=== PATIENT | male | born 1940 | race Caucasian/White ===

== ENCOUNTER → 2016-12-07 | Outpatient (CLI) | payer MEDICARE ==
--- NOTE | 2016-12-07 15:24 | CT ---
EXAMINATION TYPE: CT chest wo con DATE OF EXAM: 12/07/2016 2:51 PM COMPARISON: CT chest October 01, 2008. HISTORY: Cough and shortness of breath per order. CT DLP: 487 mGycm. Automated Exposure Control for Dose Reduction was Utilized. TECHNIQUE: CT scan of the thorax is performed without IV contrast. FINDINGS: LUNGS: Mild apical scarring bilaterally is present. Linear scarring in the right lower lobe is redemo nstrated. There is additional scarring medially in the left lung base again seen. No new concerning p arenchymal nodule or mass is present bilaterally. No new consolidation or groundglass opacity is seen . No pleural effusion or pneumothorax is noted bilaterally. MEDIASTINUM: Lack of IV contrast is noted to limit evaluation for mediastinal and especially hilar ad enopathy. There are no definitive greater than 1 cm hilar or mediastinal lymph nodes. No cardiomega ly or pericardial effusion is seen. Prominent coronary artery calcification and/or coronary stents ar e redemonstrated. Ascending aorta measures 3.9 cm in diameter on axial image 34 slightly more promine nt than prior study. OTHER: There is 1 cm splenule anterior to the spleen. Mild to moderate multilevel spurring in the spi ne is present. Underlying S-shaped scoliotic curvature is slightly more prominent versus prior CT. IMPRESSION: No suspicious acute pulmonary process. No significant change from prior CT 2008. Some chr onic parenchymal changes bilaterally are redemonstrated.
== END | disposition home or self-care (01) ==
LOC: RADCTMAIN 13:55
PROVIDERS: ATTEND Internal Medicine Pulmonary Disease
DX: J98.4 Other disorders of lung (principal); R06.02 Shortness of breath; R05 Cough
CPT/HCPCS: 71250

== ENCOUNTER 2018-10-17 14:33 | Inpatient (IN) | payer MEDICARE ==
[2018-10-17] MEDS ORDERED: SODIUM CHLORIDE 0.9% 1,000 ML IV STA (15:41)
[2018-10-17] MEDS ORDERED: DIPHENOX-ATROP 2.5-0.025 MG 1 EACH TAB PO STA (15:41)
[2018-10-17 15:54] LABS: Basophils % (A) 0 %; Eosinophils # (A) 0.2 k/uL (0-0.7); Eosinophils % (A) 2 %; HGB 13.8 gm/dL (13.0-17.5); Lymphocytes % (A) 9 %; MCH 35.3 pg (25.0-35.0); MCHC 34.5 g/dL (31.0-37.0); MCV 102.2 fL (80.0-100.0); Macrocytosis Slight; Mean Platelet Volume 6.8; Monocytes # (A) 0.6 k/uL (0-1.0); Monocytes % (A) 6 %; Neutrophils # (A) 9.1 k/uL (1.3-7.7); Neutrophils % (A) 82 %; Platelet Count 245 k/uL (150-450); RBC 3.91 m/uL (4.30-5.90); RDW 13.8 % (11.5-15.5); WBC 11.1 k/uL (3.8-10.6)
[2018-10-17 16:04] LABS: ALT 33 U/L (21-72); AST 48 U/L (17-59); Albumin 3.1 g/dL (3.5-5.0); Alcohol <10 mg/dL; Alkaline Phosphatase 139 U/L (38-126); Anion Gap 12 mmol/L; Blood Urea Nitrogen 17 mg/dL (9-20); Calcium 7.3 mg/dL (8.4-10.2); Carbon Dioxide 36 mmol/L (22-30); Chloride 88 mmol/L (98-107); Glucose 122 mg/dL (74-99); Magnesium 1.1 mg/dL (1.6-2.3); Potassium 3.2 mmol/L (3.5-5.1); Sodium 136 mmol/L (137-145); Total Bilirubin 1.4 mg/dL (0.2-1.3); Total Protein 5.8 g/dL (6.3-8.2)
[2018-10-17 16:06] LABS: INR 0.9 (<1.2); Partial Thromboplastin Time 22.2 sec (22.0-30.0); Prothrombin Time 9.8 sec (9.0-12.0)
--- NOTE | 2018-10-17 16:09 | ED ---
General Adult HPI - General Source: patient, family, RN notes reviewed Mode of arrival: wheelchair Limitations: physical limitation <Indio Calderon - Last Filed: 10/17/18 16:56> <Karsten Steiner - Last Filed: 10/17/18 18:50> - General Chief complaint: Weakness Stated complaint: Diarrhea,weak-Dr sent Time Seen by Provider: 10/17/18 15:00 - History of Present Illness Initial comments: This is an 78-year-old male presents emergency Department with a past medical history significant for alcoholism. Patient presents today because she's had diarrhea for weeks. Patient states this worsened over the last couple days and today while he was in the doctor's office he was unable to make it to the bathroom and he was in constant. Family doctor wanted her to come to be evaluated in the hospital. Patient states she drinks every day but has not drink today. Patient has no complaint pain. Patient states he does have dizzy spells occasionally even when he sitting down on occasion. Patient denies any chest pain difficulty breathing shortest breath. Patient denies a headache patient denies numbness weakness. Patient denies any near syncopal episode. Patient denies abdominal pain patient denies any nausea vomiting. Patient denies any recent antibiotic use. Patient states he doesn't eat much at all. (Indio Calderon) - Related Data Home Medications Medication Instructions Recorded Confirmed Budesonide [Pulmicort] 0.5 mg INHALATION RT-BID 01/04/14 10/17/18 Furosemide [Lasix] 40 mg PO DAILY 01/04/14 10/17/18 Metoprolol Succinate [Toprol XL] 100 mg PO DAILY 01/04/14 10/17/18 Lisinopril [Zestril] 20 mg PO DAILY 09/25/15 10/17/18 amLODIPine [Norvasc] 5 mg PO DAILY 10/17/18 10/17/18 Allergies Allergy/AdvReac Type Severity Reaction Status Date / Time acetaminophen [From Tylenol] AdvReac CONFUSED, Verified 10/17/18 15:40 HYPER Review of Systems ROS Other: All systems not noted in ROS Statement are negative. <Idnio Calderon - Last Filed: 10/17/18 16:56> ROS Other: All systems not noted in ROS Statement are negative. <Karsten Steiner - Last Filed: 10/17/18 18:50> ROS Statement: Those systems with pertinent positive or pertinent negative responses have been documented in the HPI. Past Medical History Past Medical History: Asthma, Chest Pain / Angina, COPD, Diabetes Mellitus, Eye Disorder, Hearing Disorder / Deafness, Hyperlipidemia, Hypertension, Myocardial Infarction (non Q-wave), Pneumonia, Skin Disorder, Syncope Additional Past Medical History / Comment(s): ISCHEMIC CMP. HAS ABD HERNIA, WEARS BINDER. CURRENT LESION LT [place] AREA. LT LOWER LEG REDNESS. 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 Last Myocardial Infarction Date:: 01/10/14 History of Any Multi-Drug Resistant Organisms: None Reported Past Surgical History: Appendectomy, Back Surgery, Bowel Resection, Hernia Repair, Orthopedic Surgery Additional Past Surgical History / Comment(s): BACK SURG D/T INFECTION CHILD. RT SHOULDER. Past Anesthesia/Blood Transfusion Reactions: No Reported Reaction Past Psychological History: No Psychological Hx Reported Smoking Status: Former smoker Past Alcohol Use History: Daily Past Drug Use History: None Reported - Past Family History Brother(s) Family Medical History: Cancer <Indio Calderon - Last Filed: 10/17/18 16:56> General Exam Limitations: physical limitation <Indio Calderon - Last Filed: 10/17/18 16:56> <Karsten Steiner - Last Filed: 10/17/18 18:50> - General Exam Comments Initial Comments: GENERAL: Patient is well-developed and well-nourished. Patient is nontoxic and well- hydrated and is in mild distress. ENT: Neck is soft and supple. No significant lymphadenopathy is noted. Oropharynx is clear. Mucous membranes. Neck has full range of motion without eliciting any pain. EYES: The sclera were anicteric and conjunctiva were pink and moist. Extraocular movements were intact and pupils were equal round and reactive to light. Eyelids were unremarkable. PULMONARY: Unlabored respirations. Good breath sounds bilaterally. No audible rales rhonc hi or wheezing was noted. CARDIOVASCULAR: There is a regular rate and rhythm without any murmurs gallops or rubs. ABDOMEN: Soft and nontender with normal bowel sounds. No palpable organomegaly was noted. There is no palpable pulsatile mass. SKIN: Skin is clear with no lesions or rashes and otherwise unremarkable. NEUROLOGIC: Patient is alert and oriented x3. Cranial nerves II through XII are grossly intact. Motor and sensory are also intact. Normal speech, volume and content. Symmetrical smile. MUSCULOSKELETAL: Normal extremities with adequate strength and full range of motion. No lower extremity swelling or edema. No calf tenderness. LYMPHATICS: No significant lymphadenopathy is noted PSYCHIATRIC: Normal psychiatric evaluation. (Indio Calderon) Vital Signs 10/17/18 15:14 Temperature 98.3 F Pulse Rate 59 L Respiratory 18 Rate Blood Pressure 119/71 O2 Sat by Pulse 98 Oximetry Procedures - Sepsis Sepsis Focused Exam #1 Sepsis Focused Exam Date: 10/17/18 Sepsis Focused Exam Time: 18:50 Sepsis Focused Exam Complete: Yes Vital Signs & RN Notes Reviewed: Yes Capillary Refill: < 2 Seconds: Fingers, Toes Peripheral Pulses: Normal: Radial (R), Radial (L) Skin Color: Normal for Patient Respiratory Exam: normal lung sounds Cardiovascular Exam: regular rate <Karsten Steiner - Last Filed: 10/17/18 18:50> Medical Decision Making - Lab Data Result diagrams: 10/17/18 15:41 10/17/18 15:41 <Indio Calderon - Last Filed: 10/17/18 16:56> - Lab Data Result diagrams: 10/17/18 15:41 10/17/18 15:41 <Karsten Steiner - Last Filed: 10/17/18 18:50> - Medical Decision Making EKG shows sinus rhythm with occasional PAC at 65 bpm OK interval 158 QRS is 94 QT interval 462 QTC is 480. Patient's EKG shows inverted T waves in V3 through V6 which was seen before. CT of the brain shows no acute abnormality. Patient has urinary tract infection started the patient on Rocephin. Patient's lactic acid 5.4 so the patient to 2.5 L of fluid. I spoke with Dr. Rian torrez that the patient. I admitted the patient wrote admitting orders. Patient also got magnesium to replace magnesium and some potassium as well as. (Indio Calderon) - Lab Data Lab Results 10/17/18 10/17/18 10/17/18 Range/Units 15:41 15:41 15:41 WBC 11.1 H (3.8-10.6) k/uL RBC 3.91 L (4.30-5.90) m/uL Hgb 13.8 (13.0-17.5) gm/dL Hct 40.0 (39.0-53.0) % MCV 102.2 H (80.0-100.0) fL MCH 35.3 H (25.0-35.0) pg MCHC 34.5 (31.0-37.0) g/dL RDW 13.8 (11.5-15.5) % Plt Count 245 (150-450) k/uL Neutrophils % 82 % Lymphocytes % 9 % Monocytes % 6 % Eosinophils % 2 % Basophils % 0 % Neutrophils # 9.1 H (1.3-7.7) k/uL Lymphocytes # 1.0 (1.0-4.8) k/uL Monocytes # 0.6 (0-1.0) k/uL Eosinophils # 0.2 (0-0.7) k/uL Basophils # 0.0 (0-0.2) k/uL Macrocytosis Slight PT (9.0-12.0) sec INR (<1.2) APTT (22.0-30.0) sec Sodium 136 L (137-145) mmol/L Potassium 3.2 L (3.5-5.1) mmol/L Chloride 88 L (98-107) mmol/L Carbon Dioxide 36 H (22-30) mmol/L Anion Gap 12 mmol/L BUN 17 (9-20) mg/dL Creatinine 1.54 H (0.66-1.25) mg/dL Est GFR (CKD-EPI)AfAm 49 (>60 ml/min/1.73 sqM) Est GFR (CKD-EPI)NonAf 42 (>60 ml/min/1.73 sqM) Glucose 122 H (74-99) mg/dL Plasma Lactic Acid Enmanuel 5.4 H* (0.7-2.0) mmol/L Calcium 7.3 L (8.4-10.2) mg/dL Magnesium 1.1 L (1.6-2.3) mg/dL Total Bilirubin 1.4 H (0.2-1.3) mg/dL AST 48 (17-59) U/L ALT 33 (21-72) U/L Alkaline Phosphatase 139 H (38-126) U/L Troponin I (0.000-0.034) ng/mL Total Protein 5.8 L (6.3-8.2) g/dL Albumin 3.1 L (3.5-5.0) g/dL Urine Color Urine Appearance (Clear) Urine pH (5.0-8.0) Ur Specific [place] (1.001-1.035) Urine Protein (Negative) Urine Glucose (UA) (Negative) Urine Ketones (Negative) Urine Blood (Negative) Urine Nitrite (Negative) Urine Bilirubin (Negative) Urine Urobilinogen (<2.0) mg/dL Ur Leukocyte Esterase (Negative) Urine RBC (0-5) /hpf Urine WBC (0-5) /hpf Urine WBC Clumps (None) /hpf Amorphous Sediment (None) /hpf Hyaline Casts (0-2) /lpf Urine Mucus (None) /hpf Serum Alcohol <10 mg/dL 10/17/18 10/17/18 10/17/18 Range/Units 15:41 15:41 16:32 WBC (3.8-10.6) k/uL RBC (4.30-5.90) m/uL Hgb (13.0-17.5) gm/dL Hct (39.0-53.0) % MCV (80.0-100.0) fL MCH (25.0-35.0) pg MCHC (31.0-37.0) g/dL RDW (11.5-15.5) % Plt Count (150-450) k/uL Neutrophils % % Lymphocytes % % Monocytes % % Eosinophils % % Basophils % % Neutrophils # (1.3-7.7) k/uL Lymphocytes # (1.0-4.8) k/uL Monocytes # (0-1.0) k/uL Eosinophils # (0-0.7) k/uL Basophils # (0-0.2) k/uL Macrocytosis PT 9.8 (9.0-12.0) sec INR 0.9 (<1.2) APTT 22.2 (22.0-30.0) sec Sodium (137-145) mmol/L Potassium (3.5-5.1) mmol/L Chloride (98-107) mmol/L Carbon Dioxide (22-30) mmol/L Anion Gap mmol/L BUN (9-20) mg/dL Creatinine (0.66-1.25) mg/dL Est GFR (CKD-EPI)AfAm (>60 ml/min/1.73 sqM) Est GFR (CKD-EPI)NonAf (>60 ml/min/1.73 sqM) Glucose (74-99) mg/dL Plasma Lactic Acid Enmanuel (0.7-2.0) mmol/L Calcium (8.4-10.2) mg/dL Magnesium (1.6-2.3) mg/dL Total Bilirubin (0.2-1.3) mg/dL AST (17-59) U/L ALT (21-72) U/L Alkaline Phosphatase (38-126) U/L Troponin I 0.101 H* (0.000-0.034) ng/mL Total Protein (6.3-8.2) g/dL Albumin (3.5-5.0) g/dL Urine Color Dark Yellow Urine Appearance Cloudy (Clear) Urine pH 5.0 (5.0-8.0) Ur Specific [place] 1.017 (1.001-1.035) Urine Protein 1+ H (Negative) Urine Glucose (UA) Negative (Negative) Urine Ketones Negative (Negative) Urine Blood Trace H (Negative) Urine Nitrite Negative (Negative) Urine Bilirubin 1+ H (Negative) Urine Urobilinogen 4.0 (<2.0) mg/dL Ur Leukocyte Esterase Trace H (Negative) Urine RBC 4 (0-5) /hpf Urine WBC 14 H (0-5) /hpf Urine WBC Clumps Many H (None) /hpf Amorphous Sediment Rare H (None) /hpf Hyaline Casts 87 H (0-2) /lpf Urine Mucus Occasional H (None) /hpf Serum Alcohol mg/dL Critical Care Time Critical Care Time: Yes Total Critical Care Time: 35 <Indio Calderon - Last Filed: 10/17/18 16:56> Disposition Time of Disposition: 16:53 <Indio Calderon - Last Filed: 10/17/18 16:56> <Karsten Steiner - Last Filed: 10/17/18 18:50> Clinical Impression: Lactic acidosis, Hypomagnesemia, Hypokalemia, Elevated troponin, Urinary tract infection, Renal insufficiency, Diarrhea, Sepsis Disposition: ADMITTED IP TO THIS HOSP
[2018-10-17] MEDS ORDERED: MAGNESIUM SULFATE-D5W PMX 1 GM in DEXTROSE/WATER 1 100ML.BAG IVPB ONE (16:13)
[2018-10-17] MEDS ORDERED: POTASSIUM CHLORIDE 20 MEQ in WATER FOR INJECTION 1 100ML.BAG IVPB STA (16:13)
[2018-10-17] MEDS ORDERED: POTASSIUM CHLORIDE ER 20 MEQ TAB.ER PO STA (16:13)
[2018-10-17] MEDS ORDERED: SODIUM CHLORIDE 0.9% 500 ML 500 ML IV ONE (16:14)
[2018-10-17] MEDS ORDERED: SODIUM CHLORIDE 0.9% 1,000 ML IV ONE ×2 (16:14→16:53)
--- NOTE | 2018-10-17 16:15 | CT ---
EXAMINATION TYPE: CT brain wo con DATE OF EXAM: 10/17/2018 HISTORY: weakness CT DLP: 1099.4 mGycm. Automated Exposure Control for Dose Reduction was Utilized. TECHNIQUE: CT scan of the head is performed without contrast. COMPARISON: CT brain February 03, 2016. FINDINGS: There is no acute intracranial hemorrhage or midline shift identified. There is diffuse v entricular and sulcal prominence consistent with diffuse age-related cerebral atrophy. There is low- attenuation in the periventricular white matter consistent with chronic small vessel ischemic change. There is vascular calcification distal internal carotid arteries bilaterally. There is new near comp lete opacification of smaller right sphenoid sinus. Remainder paranasal sinuses are clear. Globes a re intact bilaterally. Nasal septum is deviated to right of midline. IMPRESSION: No acute intracranial hemorrhage or midline shift. There is mild to moderate diffuse ag e-related cerebral atrophy and moderate to advanced chronic small vessel ischemic change redemonstrat ed. New patchy right sphenoid sinus disease noted.
[2018-10-17 16:41] LABS: Amorphous Sediment,Urine Rare /hpf; Appearance,Urine Cloudy (Clear); Bilirubin,Urine 1+ (Negative); Blood,Urine Trace (Negative); Color,Urine Dark Yellow; Glucose,Urine (UA) Negative (Negative); Hyaline Casts,Urine 87 /lpf (0-2); Ketones,Urine Negative (Negative); Leukocyte Esterase,Urine Trace (Negative); Mucus,Urine Occasional /hpf; Nitrite,Urine Negative (Negative); Protein,Urine 1+ (Negative); RBC,Urine 4 /hpf (0-5); Specific Gravity,Urine 1.017 (1.001-1.035); WBC,Urine 14 /hpf (0-5)
[2018-10-17] MEDS ORDERED: cefTRIAXone IN SWFI 1,000 MG/10 ML SYRINGE IVP STA (16:51)
--- NOTE | 2018-10-17 17:03 | XR ---
EXAMINATION: XR chest - 4V DATE AND TIME: 10/17/2018 4:55 PM CLINICAL INDICATION: PHH; Difficulty breathing TECHNIQUE: 2 frontal views and 2 lateral views COMPARISON: 01/10/2014 FINDINGS: The lungs are clear. The pleural spaces are negative. The cardiac silhouette is not enlarged. The skeletal structures and soft tissues are negative for acute findings. IMPRESSION: NO ACUTE PROCESS.
[2018-10-18 06:16] VITALS: BMI 22.5
[2018-10-18] MEDS ORDERED: amLODIPine 5 MG TAB PO SCH (09:00)
--- NOTE | 2018-10-18 09:16 | P.CRDCN ---
History of Present Illness Consult date: 10/18/18 Requesting physician: Mu Correa Reason for Consult (text): Abnormal troponin Chief complaint: Diarrhea History of present illness: This is an 78-year-old gentleman with history of prior non-Q-wave AR in 2013, severe COPD, EtOH abuse, hypertension, hyperlipidemia, prior history of smoking, who presents to the hospital with frequent diarrhea stools. Cardiology consultation was requested because of an abnormal troponin. CAT scan of the brain was performed on arrival here which did not reveal any acute intracranial hemorrhage or midline shift. Moderate diffuse age-related cerebral atrophy and moderate advanced chronic small vessel ischemic change. Chest x-ray did not reveal any acute process. EKG on arrival here showed a normal sinus rhythm with PACs, PVCs and nonspecific ST-T wave changes which could be secondary to electrolyte imbalance. Laboratory data was reviewed, white blood cell count 11.1, hemoglobin 13.8, platelet count 245. Sodium 136, potassium 3.2, BUN 17 and creatinine 1.5. Plasma lactic acid on admission 5.4, 2.2 this morning. Calcium 7.3 magnesium 1.1 total bilirubin 1.4 alkaline phosphatase 139, troponin 0.101, total protein 5.8, albumin 3.1. At the time of my examination this morning, patient states he feels great, he is quite eager to be discharged home. He has had no further episodes of diarrhea this morning according to him. He denies having any chest discomfort and states his breathing is always short from his COPD. the patient does live alone and states that he prepares his own meals. The patient did have an admission to the hospital in 2013 with a suspected non-Q-wave myocardial infarction. His lung doctor, Dr. OBED Hernandez, advised at that time not to proceed with any procedures clinical coder a life-threatening, because of the severe COPD. He had an echo performed at that time which revealed an EF of 30-35%. Past Medical History Past Medical History: Asthma, Chest Pain / Angina, COPD, Diabetes Mellitus, Eye Disorder, Hearing Disorder / Deafness, Hyperlipidemia, Hypertension, Myocardial Infarction (non Q-wave), Pneumonia, Skin Disorder, Syncope Additional Past Medical History / Comment(s): ISCHEMIC CMP. HAS ABD HERNIA, WEARS BINDER. CURRENT LESION LT [place] AREA. LT LOWER LEG REDNESS. 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 Last Myocardial Infarction Date:: 01/10/14 History of Any Multi-Drug Resistant Organisms: None Reported Past Surgical History: Appendectomy, Back Surgery, Bowel Resection, Hernia Repair, Orthopedic Surgery Additional Past Surgical History / Comment(s): BACK SURG D/T INFECTION CHILD. RT SHOULDER. Past Anesthesia/Blood Transfusion Reactions: No Reported Reaction Past Psychological History: No Psychological Hx Reported Smoking Status: Former smoker Past Alcohol Use History: Daily Additional Past Alcohol Use History / Comment(s): SMOKED 49 YEARS, 1 PPD PLUS, QUIT 1988 Past Drug Use History: None Reported Additional Drug Use History / Comment(s): NONE NOW - Past Family History Brother(s) Family Medical History: Cancer Medications and Allergies Home Medications Medication Instructions Recorded Confirmed Type Budesonide [Pulmicort] 0.5 mg INHALATION RT-BID 01/04/14 10/17/18 History Furosemide [Lasix] 40 mg PO DAILY 01/04/14 10/17/18 History Metoprolol Succinate [Toprol XL] 100 mg PO DAILY 01/04/14 10/17/18 History Lisinopril [Zestril] 20 mg PO DAILY 09/25/15 10/17/18 History amLODIPine [Norvasc] 5 mg PO DAILY 10/17/18 10/17/18 History Allergies Allergy/AdvReac Type Severity Reaction Status Date / Time acetaminophen [From Tylenol] AdvReac CONFUSED, Verified 10/17/18 15:40 HYPER Physical Exam Vitals: Vital Signs Temp Pulse Pulse Resp BP BP Pulse Ox 10/18/18 04:31 67 20 149/72 98 10/17/18 20:53 98.5 F 10/17/18 19:30 61 17 127/72 10/17/18 18:00 68 16 136/74 10/17/18 17:30 66 23 130/96 10/17/18 17:00 66 23 119/71 98 10/17/18 15:14 98.3 F 59 L 18 119/71 98 Intake and Output 10/17/18 10/18/18 10/18/18 22:59 06:59 14:59 Intake Total 118 Output Total 150 300 Balance -150 -182 Intake: Oral 118 Output: Urine 150 300 Other: Voiding Method Toilet # Voids 1 1 Weight 75.387 kg 73.3 kg PHYSICAL EXAMINATION: GENERAL: 78-year-old gentleman in no acute distress at the time of my examination HEENT: Head is atraumatic, normocephalic. Pupils equal, round. Sclera anicteric. Conjunctiva are clear. Mucous membranes of the mouth are moist. Neck is supple. There is no elevated jugular venous pressure. No carotid bruit is heard. HEART EXAMINATION: Heart S1 and S2 with soft systolic murmur is heard CHEST EXAMINATION: Lungs reveal mild decrease in air exchange. ABDOMEN: Soft, nontender. Bowel sounds are heard. No organomegaly noted. EXTREMITIES:[ 2+ peripheral pulses with no evidence chronic venous stasis and scaling of the skin, trace edema NEUROLOGIC patient is awake, alert and oriented 3 . . Results 10/17/18 15:41 10/17/18 15:41 Cardiac Enzymes 10/17/18 10/17/18 Range/Units 15:41 15:41 AST 48 (17-59) U/L Troponin I 0.101 H* (0.000-0.034) ng/mL Coagulation 10/17/18 Range/Units 15:41 PT 9.8 (9.0-12.0) sec APTT 22.2 (22.0-30.0) sec CBC 10/17/18 Range/Units 15:41 WBC 11.1 H (3.8-10.6) k/uL RBC 3.91 L (4.30-5.90) m/uL Hgb 13.8 (13.0-17.5) gm/dL Hct 40.0 (39.0-53.0) % Plt Count 245 (150-450) k/uL Comprehensive Metabolic Panel 10/17/18 Range/Units 15:41 Sodium 136 L (137-145) mmol/L Potassium 3.2 L (3.5-5.1) mmol/L Chloride 88 L (98-107) mmol/L Carbon Dioxide 36 H (22-30) mmol/L BUN 17 (9-20) mg/dL Creatinine 1.54 H (0.66-1.25) mg/dL Glucose 122 H (74-99) mg/dL Calcium 7.3 L (8.4-10.2) mg/dL AST 48 (17-59) U/L ALT 33 (21-72) U/L Alkaline Phosphatase 139 H (38-126) U/L Total Protein 5.8 L (6.3-8.2) g/dL Albumin 3.1 L (3.5-5.0) g/dL Current Medications Generic Name Dose Route Start Last Admin Trade Name Simin PRN Reason Stop Dose Admin Ceftriaxone Sodium 1 gm/ 50 mls @ 100 mls/hr 10/18/18 09:00 Sodium Chloride IVPB Q24HR MARCI Intake and Output 10/17/18 10/18/18 10/18/18 22:59 06:59 14:59 Intake Total 118 Output Total 150 300 Balance -150 -182 Intake: Oral 118 Output: Urine 150 300 Other: Voiding Method Toilet # Voids 1 1 Weight 75.387 kg 73.3 kg 10/17/18 15:41 10/17/18 15:41 EKG Interpretations (text) EKG shows a normal sinus rhythm with PACs, PVCs, and ST-T wave changes likely secondary to electrolyte imbalance Assessment and Plan Plan: Assessment and plan #1 several diarrhea stools #2 abnormal troponin, 0.101. Patient denies having any chest discomfort, could be secondary to abnormal renal function #3 hypokalemia #4 hypomagnesemia #5 hypocalcemia #6 EtOH abuse #7 history of non-STEMI in 2013 echo performed at that time showed an EF of 30- 35, patient advised at that time not to undergo any procedures secondary to severe COPD #8 moderate to severe COPD #9 history of smoking Plan We will obtain 2 subsequent troponins. Repeat echocardiogram with Doppler study. Replace potassium and magnesium. Because of the known abnormal LV function we will discontinue the Norvasc, continue beta harman and DENIS inhibitor. Repeat labs in the morning. Patient also is receiving hydration. We will put the patient on a baby aspirin, small dose of statin. Further recommendations to follow. DNP note has been reviewed, I agree with a documented findings and plan of care. Patient was seen and examined.
[2018-10-18] MEDS: LISINOPRIL 20 MG TAB PO SCH (09:31)
[2018-10-18] MEDS: METOPROLOL SUCCINATE (ER) 100 MG TAB.ER.24H PO SCH (09:31)
[2018-10-18] MEDS: ASPIRIN 81 MG PO SCH (09:32)
--- NOTE | 2018-10-18 10:57 | P.HPIM ---
History of Present Illness 78-year-old male presented to family physician with severe diarrhea. Was sent to the emergency room for evaluation was found to be septic urinary tract infection. Has elevated troponin. Patient does have history of congestive hea rt failure ejection fraction 30-35%. Severe COPD. Alcohol abuse. Has history of several bowel resections does have a hernia ventral. History of coronary disease with IA Review of Systems Respiratory: Reports dyspnea Gastrointestinal: Reports diarrhea Past Medical History Past Medical History: Asthma, Chest Pain / Angina, COPD, Diabetes Mellitus, Eye Disorder, Hearing Disorder / Deafness, Hyperlipidemia, Hypertension, Myocardial Infarction (non Q-wave), Pneumonia, Skin Disorder, Syncope Additional Past Medical History / Comment(s): ISCHEMIC CMP. HAS ABD HERNIA, WEARS BINDER. CURRENT LESION LT [place] AREA. LT LOWER LEG REDNESS. 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 Last Myocardial Infarction Date:: 01/10/14 History of Any Multi-Drug Resistant Organisms: None Reported Past Surgical History: Appendectomy, Back Surgery, Bowel Resection, Hernia Repair, Orthopedic Surgery Additional Past Surgical History / Comment(s): BACK SURG D/T INFECTION CHILD. RT SHOULDER. Past Anesthesia/Blood Transfusion Reactions: No Reported Reaction Past Psychological History: No Psychological Hx Reported Smoking Status: Former smoker Past Alcohol Use History: Daily Additional Past Alcohol Use History / Comment(s): SMOKED 51 YEARS, 1 PPD PLUS, QUIT 1988 Past Drug Use History: None Reported Additional Drug Use History / Comment(s): NONE NOW - Past Family History Brother(s) Family Medical History: Cancer Medications and Allergies Home Medications Medication Instructions Recorded Confirmed Type Budesonide [Pulmicort] 0.5 mg INHALATION RT-BID 01/04/14 10/17/18 History Furosemide [Lasix] 40 mg PO DAILY 01/04/14 10/17/18 History Metoprolol Succinate [Toprol XL] 100 mg PO DAILY 01/04/14 10/17/18 History Lisinopril [Zestril] 20 mg PO DAILY 09/25/15 10/17/18 History amLODIPine [Norvasc] 5 mg PO DAILY 10/17/18 10/17/18 History Allergies Allergy/AdvReac Type Severity Reaction Status Date / Time acetaminophen [From Tylenol] AdvReac CONFUSED, Verified 10/17/18 15:40 HYPER Physical Exam Vitals: Vital Signs Temp Pulse Pulse Resp BP BP Pulse Ox 10/18/18 08:00 98.2 F 68 16 123/62 92 L 10/18/18 04:31 67 20 149/72 98 10/17/18 20:53 98.5 F 10/17/18 19:30 61 17 127/72 10/17/18 18:00 68 16 136/74 10/17/18 17:30 66 23 130/96 10/17/18 17:00 66 23 119/71 98 10/17/18 15:14 98.3 F 59 L 18 119/71 98 Intake and Output 10/17/18 10/18/18 10/18/18 22:59 06:59 14:59 Intake Total 118 Output Total 150 300 Balance -150 -182 Intake: Oral 118 Output: Urine 150 300 Other: Voiding Method Toilet # Voids 1 1 Weight 75.387 kg 73.3 kg 73.3 kg - Constitutional General appearance: mild distress - EENT Eyes: PERRLA ENT: hard of hearing Ears: bilateral: normal - Neck Neck: normal ROM - Respiratory Respiratory: bilateral: CTA - Cardiovascular Rhythm: regular - Gastrointestinal General gastrointestinal: soft - Integumentary Integumentary: normal - Neurologic Neurologic: CNII-XII intact - Musculoskeletal Musculoskeletal: generalized weakness - Psychiatric Psychiatric: A&O x's 3, appropriate affect, intact judgment & insight Results CBC & Chem 7: 10/17/18 15:41 10/17/18 15:41 Labs: Abnormal Lab Results - Last 24 Hours (Table) 10/17/18 10/17/18 10/17/18 Range/Units 15:41 15:41 15:41 WBC 11.1 H (3.8-10.6) k/uL RBC 3.91 L (4.30-5.90) m/uL MCV 102.2 H (80.0-100.0) fL MCH 35.3 H (25.0-35.0) pg Neutrophils # 9.1 H (1.3-7.7) k/uL Sodium 136 L (137-145) mmol/L Potassium 3.2 L (3.5-5.1) mmol/L Chloride 88 L (98-107) mmol/L Carbon Dioxide 36 H (22-30) mmol/L Creatinine 1.54 H (0.66-1.25) mg/dL Glucose 122 H (74-99) mg/dL Plasma Lactic Acid Enmanuel 5.4 H* (0.7-2.0) mmol/L Calcium 7.3 L (8.4-10.2) mg/dL Magnesium 1.1 L (1.6-2.3) mg/dL Total Bilirubin 1.4 H (0.2-1.3) mg/dL Alkaline Phosphatase 139 H (38-126) U/L Troponin I (0.000-0.034) ng/mL Total Protein 5.8 L (6.3-8.2) g/dL Albumin 3.1 L (3.5-5.0) g/dL Urine Protein (Negative) Urine Blood (Negative) Urine Bilirubin (Negative) Ur Leukocyte Esterase (Negative) Urine WBC (0-5) /hpf Urine WBC Clumps (None) /hpf Amorphous Sediment (None) /hpf Hyaline Casts (0-2) /lpf Urine Mucus (None) /hpf 10/17/18 10/17/18 10/17/18 Range/Units 15:41 16:32 19:09 WBC (3.8-10.6) k/uL RBC (4.30-5.90) m/uL MCV (80.0-100.0) fL MCH (25.0-35.0) pg Neutrophils # (1.3-7.7) k/uL Sodium (137-145) mmol/L Potassium (3.5-5.1) mmol/L Chloride (98-107) mmol/L Carbon Dioxide (22-30) mmol/L Creatinine (0.66-1.25) mg/dL Glucose (74-99) mg/dL Plasma Lactic Acid Enmanuel 2.2 H* (0.7-2.0) mmol/L Calcium (8.4-10.2) mg/dL Magnesium (1.6-2.3) mg/dL Total Bilirubin (0.2-1.3) mg/dL Alkaline Phosphatase (38-126) U/L Troponin I 0.101 H* (0.000-0.034) ng/mL Total Protein (6.3-8.2) g/dL Albumin (3.5-5.0) g/dL Urine Protein 1+ H (Negative) Urine Blood Trace H (Negative) Urine Bilirubin 1+ H (Negative) Ur Leukocyte Esterase Trace H (Negative) Urine WBC 14 H (0-5) /hpf Urine WBC Clumps Many H (None) /hpf Amorphous Sediment Rare H (None) /hpf Hyaline Casts 87 H (0-2) /lpf Urine Mucus Occasional H (None) /hpf 10/18/18 Range/Units 09:00 WBC (3.8-10.6) k/uL RBC (4.30-5.90) m/uL MCV (80.0-100.0) fL MCH (25.0-35.0) pg Neutrophils # (1.3-7.7) k/uL Sodium (137-145) mmol/L Potassium (3.5-5.1) mmol/L Chloride (98-107) mmol/L Carbon Dioxide (22-30) mmol/L Creatinine (0.66-1.25) mg/dL Glucose (74-99) mg/dL Plasma Lactic Acid Enmanuel (0.7-2.0) mmol/L Calcium (8.4-10.2) mg/dL Magnesium (1.6-2.3) mg/dL Total Bilirubin (0.2-1.3) mg/dL Alkaline Phosphatase (38-126) U/L Troponin I 0.093 H* (0.000-0.034) ng/mL Total Protein (6.3-8.2) g/dL Albumin (3.5-5.0) g/dL Urine Protein (Negative) Urine Blood (Negative) Urine Bilirubin (Negative) Ur Leukocyte Esterase (Negative) Urine WBC (0-5) /hpf Urine WBC Clumps (None) /hpf Amorphous Sediment (None) /hpf Hyaline Casts (0-2) /lpf Urine Mucus (None) /hpf Microbiology - Last 24 Hours (Table) 10/17/18 16:32 Urine Culture - Preliminary Urine,Catheterized Chest x-ray: report reviewed CT Scan - head: report reviewed Assessment and Plan Plan: Assessment Lactic acidosis Hypo-magnesium hypokalemia Elevated troponin Urinary tract infection with sepsis Renal insufficiency Diarrhea 3 days History of congestive heart failure ejection fraction 30-35% systolic dysfunction Severe COPD Alcohol abuse History of bowel resection ventral hernia noted Heart of hearing History of hypertension Hyperlipidemia Diabetes diet-controlled Plan Cardiology consultation regarding elevated troponin Patient on Rocephin for UTI Gastroenterology consult for diarrhea
--- NOTE | 2018-10-18 14:21 | P.CONS ---
History of Present Illness - Reason for Consult Consult date: 10/18/18 Diarrhea Requesting physician: Mu Correa - Chief Complaint Diarrhea - History of Present Illness 78-year-old gentleman with a past medical history of EtOH abuse, diabetes, hypertension, [place], bowel resection admitted with persistent nonbloody diarrhea for more than 2 weeks. Additional history was obtained from female friend at bedside. Hemoglobin 13.8. White count 11.1. BUN 17. Creatinine 1.5. Lactic acid 5.4 with hydration 2.2. Troponin 0.09-0.1. Magnesium 1.1. Potassium 3.2. Sodium 136. C. diff requested. Presently no active diarrhea. Patient states when he was having diarrhea was averaging 2-3 times a day. No recent travels. No changes in diet. Last colonoscopy possibly 10-15 years ago. Denies weight loss or abdominal pain. No recent antibiotics. Requesting discharge. Review of Systems Constitutional: Denies fever, chills, sweats, weight gain, or loss. HEENT: Negative for migraines, blurred vision or loss, earaches, drainage, tinnitus, oral mucosal lesions, dysphagia, or odynophagia. Cardiac: Negative for chest pain, arrhythmias, or palpitation. Respiratory: Negative for shortness of breath, hemoptysis, cough, or sputum production. Gastrointestinal: See HPI for pertinent findings. Genitourinary: Negative for hematuria, urgency, frequency, polyuria, dysuria, or penile discharge. Musculoskeletal: Negative for muscle aches, swelling, arthritis, and arthralgias. Neurologic: Negative for stroke or TIA. Endocrine: Negative for thyroid problems. Skin: Negative for rash or itching. Psychiatric: Negative history for depression and anxiety Past Medical History Past Medical History: Asthma, Chest Pain / Angina, COPD, Diabetes Mellitus, Eye Disorder, Hearing Disorder / Deafness, Hyperlipidemia, Hypertension, Myocardial Infarction (non Q-wave), Pneumonia, Skin Disorder, Syncope Additional Past Medical History / Comment(s): ISCHEMIC CMP. HAS ABD HERNIA, WEARS BINDER. CURRENT LESION LT [place] AREA. LT LOWER LEG REDNESS. 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 Last Myocardial Infarction Date:: 01/10/14 History of Any Multi-Drug Resistant Organisms: None Reported Past Surgical History: Appendectomy, Back Surgery, Bowel Resection, Hernia Repair, Orthopedic Surgery Additional Past Surgical History / Comment(s): BACK SURG D/T INFECTION CHILD. RT SHOULDER. Past Anesthesia/Blood Transfusion Reactions: No Reported Reaction Past Psychological History: No Psychological Hx Reported Smoking Status: Former smoker Past Alcohol Use History: Daily Additional Past Alcohol Use History / Comment(s): SMOKED 51 YEARS, 1 PPD PLUS, QUIT 1988 Past Drug Use History: None Reported Additional Drug Use History / Comment(s): NONE NOW - Past Family History Brother(s) Family Medical History: Cancer Medications and Allergies Home Medications Medication Instructions Recorded Confirmed Type Budesonide [Pulmicort] 0.5 mg INHALATION RT-BID 01/04/14 10/17/18 History Furosemide [Lasix] 40 mg PO DAILY 01/04/14 10/17/18 History Metoprolol Succinate [Toprol XL] 100 mg PO DAILY 01/04/14 10/17/18 History Lisinopril [Zestril] 20 mg PO DAILY 09/25/15 10/17/18 History amLODIPine [Norvasc] 5 mg PO DAILY 10/17/18 10/17/18 History Allergies Allergy/AdvReac Type Severity Reaction Status Date / Time acetaminophen [From Tylenol] AdvReac CONFUSED, Verified 10/17/18 15:40 HYPER Physical Exam Vitals: Vital Signs Temp Pulse Pulse Resp BP BP Pulse Ox 10/18/18 12:00 98.7 F 71 16 142/77 97 10/18/18 08:00 98.2 F 68 16 123/62 92 L 10/18/18 04:31 67 20 149/72 98 10/17/18 20:53 98.5 F 10/17/18 19:30 61 17 127/72 10/17/18 18:00 68 16 136/74 10/17/18 17:30 66 23 130/96 10/17/18 17:00 66 23 119/71 98 10/17/18 15:14 98.3 F 59 L 18 119/71 98 Intake and Output 10/17/18 10/18/18 10/18/18 22:59 06:59 14:59 Intake Total 118 Output Total 150 300 Balance -150 -182 Intake: Oral 118 Output: Urine 150 300 Other: Voiding Method Toilet # Voids 1 1 Weight 75.387 kg 73.3 kg 73.3 kg General appearance: The patient is alert, oriented, in no acute distress. HET: Head is normocephalic and atraumatic. Pupils are equal and reactive. Oropharynx is clear without lesions. Neck: Supple without lymphadenopathy. Trachea midline. Heart: S1 S2. Regular rate and rhythm. Lungs: No crackles or wheezes are heard. Abdomen: Soft, nontender, nondistended with bowel sounds. No peritoneal signs. No palpable organomegaly or masses. Extremities: Normal skin color and turgor. No cyanosis, rash, ulceration, clubbing, or edema. Radial and pedal pulses are 2/4 bilaterally. Neurological: No focal deficits. Strength and sensation are grossly intact. Results CBC & Chem 7: 10/17/18 15:41 10/17/18 15:41 Labs: Abnormal Lab Results - Last 24 Hours (Table) 10/17/18 10/17/18 10/17/18 Range/Units 15:41 15:41 15:41 WBC 11.1 H (3.8-10.6) k/uL RBC 3.91 L (4.30-5.90) m/uL MCV 102.2 H (80.0-100.0) fL MCH 35.3 H (25.0-35.0) pg Neutrophils # 9.1 H (1.3-7.7) k/uL Sodium 136 L (137-145) mmol/L Potassium 3.2 L (3.5-5.1) mmol/L Chloride 88 L (98-107) mmol/L Carbon Dioxide 36 H (22-30) mmol/L Creatinine 1.54 H (0.66-1.25) mg/dL Glucose 122 H (74-99) mg/dL Plasma Lactic Acid Enmanuel 5.4 H* (0.7-2.0) mmol/L Calcium 7.3 L (8.4-10.2) mg/dL Magnesium 1.1 L (1.6-2.3) mg/dL Total Bilirubin 1.4 H (0.2-1.3) mg/dL Alkaline Phosphatase 139 H (38-126) U/L Troponin I (0.000-0.034) ng/mL Total Protein 5.8 L (6.3-8.2) g/dL Albumin 3.1 L (3.5-5.0) g/dL Urine Protein (Negative) Urine Blood (Negative) Urine Bilirubin (Negative) Ur Leukocyte Esterase (Negative) Urine WBC (0-5) /hpf Urine WBC Clumps (None) /hpf Amorphous Sediment (None) /hpf Hyaline Casts (0-2) /lpf Urine Mucus (None) /hpf 10/17/18 10/17/18 10/17/18 Range/Units 15:41 16:32 19:09 WBC (3.8-10.6) k/uL RBC (4.30-5.90) m/uL MCV (80.0-100.0) fL MCH (25.0-35.0) pg Neutrophils # (1.3-7.7) k/uL Sodium (137-145) mmol/L Potassium (3.5-5.1) mmol/L Chloride (98-107) mmol/L Carbon Dioxide (22-30) mmol/L Creatinine (0.66-1.25) mg/dL Glucose (74-99) mg/dL Plasma Lactic Acid Enmanuel 2.2 H* (0.7-2.0) mmol/L Calcium (8.4-10.2) mg/dL Magnesium (1.6-2.3) mg/dL Total Bilirubin (0.2-1.3) mg/dL Alkaline Phosphatase (38-126) U/L Troponin I 0.101 H* (0.000-0.034) ng/mL Total Protein (6.3-8.2) g/dL Albumin (3.5-5.0) g/dL Urine Protein 1+ H (Negative) Urine Blood Trace H (Negative) Urine Bilirubin 1+ H (Negative) Ur Leukocyte Esterase Trace H (Negative) Urine WBC 14 H (0-5) /hpf Urine WBC Clumps Many H (None) /hpf Amorphous Sediment Rare H (None) /hpf Hyaline Casts 87 H (0-2) /lpf Urine Mucus Occasional H (None) /hpf 10/18/18 Range/Units 09:00 WBC (3.8-10.6) k/uL RBC (4.30-5.90) m/uL MCV (80.0-100.0) fL MCH (25.0-35.0) pg Neutrophils # (1.3-7.7) k/uL Sodium (137-145) mmol/L Potassium (3.5-5.1) mmol/L Chloride (98-107) mmol/L Carbon Dioxide (22-30) mmol/L Creatinine (0.66-1.25) mg/dL Glucose (74-99) mg/dL Plasma Lactic Acid Enmanuel (0.7-2.0) mmol/L Calcium (8.4-10.2) mg/dL Magnesium (1.6-2.3) mg/dL Total Bilirubin (0.2-1.3) mg/dL Alkaline Phosphatase (38-126) U/L Troponin I 0.093 H* (0.000-0.034) ng/mL Total Protein (6.3-8.2) g/dL Albumin (3.5-5.0) g/dL Urine Protein (Negative) Urine Blood (Negative) Urine Bilirubin (Negative) Ur Leukocyte Esterase (Negative) Urine WBC (0-5) /hpf Urine WBC Clumps (None) /hpf Amorphous Sediment (None) /hpf Hyaline Casts (0-2) /lpf Urine Mucus (None) /hpf Microbiology - Last 24 Hours (Table) 10/17/18 16:32 Urine Culture - Preliminary Urine,Catheterized Assessment and Plan (1) Diarrhea Narrative/Plan: 78-year-old gentleman admitted with electrolyte imbalances painless nonbloody diarrhea for at least 2 weeks duration. Possible self limiting infectious possible inflammatory presently without diarrhea. Current Visit: Yes Status: Acute Code(s): R19.7 - DIARRHEA, UNSPECIFIED SNOMED Code(s): 74837577 (2) Elevated troponin Current Visit: Yes Status: Acute Code(s): R74.8 - ABNORMAL LEVELS OF OTHER SERUM ENZYMES SNOMED Code(s): 487178731 Plan: 1. Colonoscopy was discussed however patient declined he is requesting discharge. Presently no active diarrhea. If patient has recurrent watery diarrhea recommend stool testing including culture and Clostridium difficile testing. Advised [id number] antidiarrheals as necessary Imodium 2 mg 4 times a day as needed. Diet as tolerated. Thank you for this kind referral and the opportunity to participate in the care of your patient. This consultation was discussed with Dr. Clark. The impression and plan of care have been directed as dictated.
--- NOTE | 2018-10-18 19:05 | ECHOF ---
Referral Reason:abn trop MEASUREMENTS -------- HEIGHT: 180.3 cm WEIGHT: 73.0 kg BP: 149/72 IVSd: 1.4 cm (0.6 - 1.1) LVIDd: 3.8 cm (3.9 - 5.3) LVPWd: 1.2 cm (0.6 - 1.1) IVSs: 1.8 cm LVIDs: 2.4 cm LVPWs: 1.7 cm Ao Diam: 3.3 cm (2.0 - 3.7) AV Cusp: 2.4 cm (1.5 - 2.6) LA Diam: 3.4 cm (2.7 - 3.8) MV EXCURSION: 14.924 mm (> 18.000) MV EF SLOPE: 64 mm/s (70 - 150) EPSS: 0.5 cm MV E Servando: 0.65 m/s MV DecT: 272 ms MV A Servando: 0.73 m/s MV E/A Ratio: 0.88 RAP: 5.00 mmHg RVSP: 35.21 mmHg FINDINGS -------- Sinus rhythm. This was a technically good study. The left ventricular size is normal. There is moderate concentric left ventricular hypertrophy. O verall left ventricular systolic function is normal with, an EF between 55 - 60 %. The right ventricle is normal in size. The left atrium is normal in size. The right atrial size is normal. Aortic valve is trileaflet and is mildly thickened. The mitral valve leaflets are mildly thickened. Mild mitral annular calcification present. There is trace mitral regurgitation. Mild tricuspid regurgitation present. There is borderline pulmonary hypertension. The right ventr icular systolic pressure, as measured by Doppler, is 35.21mmHg. There is no pulmonic regurgitation present. The aortic root size is normal. Normal inferior vena cava with normal inspiratory collapse consistent with estimated right atrial pre ssure of 5 mmHg. The pericardium is normal. CONCLUSIONS -------- 1. Sinus rhythm. 2. This was a technically good study. 3. The left ventricular size is normal. 4. There is moderate concentric left ventricular hypertrophy. 5. Overall left ventricular systolic function is normal with, an EF between 55 - 60 %. 6. The right ventricle is normal in size. 7. The left atrium is normal in size. 8. The right atrial size is normal. 9. Aortic valve is trileaflet and is mildly thickened. 10. The mitral valve leaflets are mildly thickened. 11. Mild mitral annular calcification present. 12. There is trace mitral regurgitation. 13. Mild tricuspid regurgitation present. 14. There is borderline pulmonary hypertension. 15. The right ventricular systolic pressure, as measured by Doppler, is 35.21mmHg. 16. There is no pulmonic regurgitation present. 17. The aortic root size is normal. 18. Normal inferior vena cava with normal inspiratory collapse consistent with estimated right atrial pressure of 5 mmHg. 19. The pericardium is normal. [facility]: Homa Kim RDCS
[2018-10-18] MEDS: BUDESONIDE 0.5 MG/2 ML NEBU INHALATION SCH (19:50)
[2018-10-18] MEDS: ATORVASTATIN 20 MG TAB PO SCH (20:59)
[2018-10-19] MEDS: BUDESONIDE 0.5 MG/2 ML NEBU INHALATION SCH ×2 (07:50→19:41)
[2018-10-19] MEDS: LISINOPRIL 20 MG TAB PO SCH (09:57)
[2018-10-19] MEDS: METOPROLOL SUCCINATE (ER) 100 MG TAB.ER.24H PO SCH (09:57)
[2018-10-19] MEDS: ASPIRIN 81 MG PO SCH (09:57)
[2018-10-19 10:24] LABS: MCH 35.7 pg (25.0-35.0); MCHC 34.2 g/dL (31.0-37.0); MCV 104.3 fL (80.0-100.0); Mean Platelet Volume 6.8; Platelet Count 199 k/uL (150-450); RBC 3.36 m/uL (4.30-5.90)
[2018-10-19 10:25] LABS: Basophils % (A) 0 %; Eosinophils # (A) 0.2 k/uL (0-0.7); Eosinophils % (A) 3 %; Lymphocytes # (A) 0.8 k/uL (1.0-4.8); Lymphocytes % (A) 11 %; Macrocytosis Slight; Monocytes # (A) 0.4 k/uL (0-1.0); Monocytes % (A) 6 %; Neutrophils # (A) 5.5 k/uL (1.3-7.7); Neutrophils % (A) 79 %
[2018-10-19 10:40] LABS: ALT 37 U/L (21-72); AST 56 U/L (17-59); Albumin 2.8 g/dL (3.5-5.0); Alkaline Phosphatase 115 U/L (38-126); Blood Urea Nitrogen 10 mg/dL (9-20); Calcium 7.2 mg/dL (8.4-10.2); Chloride 94 mmol/L (98-107); Glucose 101 mg/dL (74-99); Sodium 139 mmol/L (137-145); Total Bilirubin 0.9 mg/dL (0.2-1.3); Total Protein 5.3 g/dL (6.3-8.2)
[2018-10-19 10:55] LABS: Anion Gap 6 mmol/L; Carbon Dioxide 39 mmol/L (22-30); Potassium 2.5 mmol/L (3.5-5.1)
--- NOTE | 2018-10-19 11:27 | P.PN ---
Subjective Cleared by cardiology for discharge potassium 2.5 needs replacement is for discharge. No further diarrhea Objective - Vital Signs Vital signs: Vital Signs Temp 98 F 10/19/18 08:00 Pulse 96 10/19/18 08:00 Resp 20 10/19/18 08:00 BP 131/76 10/19/18 08:00 Pulse Ox 88 L 10/19/18 08:00 Intake & Output 10/18/18 10/19/18 10/19/18 18:59 06:59 18:59 Intake Total 358 Output Total 900 1 Balance -542 -1 Weight 73.3 kg 73.3 kg Intake: Oral 358 Output: Urine 900 1 Other: Voiding Method Toilet # Voids 1 - Constitutional General appearance: Present: mild distress - EENT Eyes: Present: PERRLA - Neck Neck: Present: normal ROM - Respiratory Respiratory: - Gastrointestinal General gastrointestinal: Present: soft - Integumentary Integumentary: Present: normal - Neurologic Neurologic: Present: CNII-XII intact - Psychiatric Psychiatric: Present: A&O x's 3, appropriate affect, intact judgment & insight - Labs CBC & Chem 7: 10/19/18 09:50 10/19/18 09:50 Labs: Abnormal Lab Results - Last 24 Hours (Table) 10/18/18 10/18/18 10/19/18 Range/Units 15:04 21:06 09:50 RBC 3.36 L (4.30-5.90) m/uL Hgb 12.0 L (13.0-17.5) gm/dL Hct 35.0 L (39.0-53.0) % MCV 104.3 H (80.0-100.0) fL MCH 35.7 H (25.0-35.0) pg Lymphocytes # 0.8 L (1.0-4.8) k/uL Potassium (3.5-5.1) mmol/L Chloride (98-107) mmol/L Carbon Dioxide (22-30) mmol/L Glucose (74-99) mg/dL Calcium (8.4-10.2) mg/dL Troponin I 0.091 H* 0.089 H* (0.000-0.034) ng/mL Total Protein (6.3-8.2) g/dL Albumin (3.5-5.0) g/dL 10/19/18 Range/Units 09:50 RBC (4.30-5.90) m/uL Hgb (13.0-17.5) gm/dL Hct (39.0-53.0) % MCV (80.0-100.0) fL MCH (25.0-35.0) pg Lymphocytes # (1.0-4.8) k/uL Potassium 2.5 L* (3.5-5.1) mmol/L Chloride 94 L (98-107) mmol/L Carbon Dioxide 39 H (22-30) mmol/L Glucose 101 H (74-99) mg/dL Calcium 7.2 L (8.4-10.2) mg/dL Troponin I (0.000-0.034) ng/mL Total Protein 5.3 L (6.3-8.2) g/dL Albumin 2.8 L (3.5-5.0) g/dL Microbiology - Last 24 Hours (Table) 10/17/18 16:32 Urine Culture - Final Urine,Catheterized 10/17/18 17:00 Blood Culture - Preliminary Blood No Growth after 24 hours Assessment and Plan Plan: Assessment Lactic acidosis secondary to diarrhea Hypo-magnesium Hypokalemia Elevated troponin not cardiac Urinary tract infection Renal insufficiency Diarrhea Sepsis History of bowel resection with hernia Heart of hearing Hypertension Hyperlipidemia History of coronary disease with IL Diabetes type 2 Plan Hypokalemia Will replace then will be stable for discharge
--- NOTE | 2018-10-19 11:32 | P.PN ---
Subjective Progress Note Date: 10/19/18 Principal diagnosis: Diarrhea No diarrhea. Denies abdominal pain. Potassium being replaced on possible discharge today. Potassium 2.5. C. diff negative. Objective - Vital Signs Vital signs: Vital Signs Temp 98 F 10/19/18 08:00 Pulse 96 10/19/18 08:00 Resp 20 10/19/18 08:00 BP 131/76 10/19/18 08:00 Pulse Ox 88 L 10/19/18 08:00 Intake & Output 10/18/18 10/19/18 10/19/18 18:59 06:59 18:59 Intake Total 358 Output Total 900 1 Balance -542 -1 Weight 73.3 kg 73.3 kg Intake: Oral 358 Output: Urine 900 1 Other: Voiding Method Toilet # Voids 1 - Exam General appearance: The patient is alert, oriented, in no acute distress. HET: Head is normocephalic and atraumatic. Pupils are equal and reactive. Oropharynx is clear without lesions. Neck: Supple without lymphadenopathy. Trachea midline. Heart: S1 S2. Regular rate and rhythm. Lungs: No crackles or wheezes are heard. Abdomen: Soft, nontender, nondistended with bowel sounds. No peritoneal signs. No palpable organomegaly or masses. Extremities: No edema. Neurological: No focal deficits. Strength and sensation are grossly intact. - Labs CBC & Chem 7: 10/19/18 09:50 10/19/18 09:50 Labs: Abnormal Lab Results - Last 24 Hours (Table) 10/18/18 10/18/18 10/19/18 Range/Units 15:04 21:06 09:50 RBC 3.36 L (4.30-5.90) m/uL Hgb 12.0 L (13.0-17.5) gm/dL Hct 35.0 L (39.0-53.0) % MCV 104.3 H (80.0-100.0) fL MCH 35.7 H (25.0-35.0) pg Lymphocytes # 0.8 L (1.0-4.8) k/uL Potassium (3.5-5.1) mmol/L Chloride (98-107) mmol/L Carbon Dioxide (22-30) mmol/L Glucose (74-99) mg/dL Calcium (8.4-10.2) mg/dL Troponin I 0.091 H* 0.089 H* (0.000-0.034) ng/mL Total Protein (6.3-8.2) g/dL Albumin (3.5-5.0) g/dL 10/19/18 Range/Units 09:50 RBC (4.30-5.90) m/uL Hgb (13.0-17.5) gm/dL Hct (39.0-53.0) % MCV (80.0-100.0) fL MCH (25.0-35.0) pg Lymphocytes # (1.0-4.8) k/uL Potassium 2.5 L* (3.5-5.1) mmol/L Chloride 94 L (98-107) mmol/L Carbon Dioxide 39 H (22-30) mmol/L Glucose 101 H (74-99) mg/dL Calcium 7.2 L (8.4-10.2) mg/dL Troponin I (0.000-0.034) ng/mL Total Protein 5.3 L (6.3-8.2) g/dL Albumin 2.8 L (3.5-5.0) g/dL Microbiology - Last 24 Hours (Table) 10/17/18 16:32 Urine Culture - Final Urine,Catheterized 10/17/18 17:00 Blood Culture - Preliminary Blood No Growth after 24 hours Assessment and Plan (1) Diarrhea Narrative/Plan: 78-year-old gentleman admitted with electrolyte imbalances painless nonbloody diarrhea for at least 2 weeks duration. Possible self limiting infectious possible inflammatory presently without diarrhea. Current Visit: Yes Status: Acute Code(s): R19.7 - DIARRHEA, UNSPECIFIED SNOMED Code(s): 95670848 (2) Elevated troponin Current Visit: Yes Status: Acute Code(s): R74.8 - ABNORMAL LEVELS OF OTHER SERUM ENZYMES SNOMED Code(s): 652828743 Plan: 1. Presently no active diarrhea. Advised [id number] antidiarrheals as necessary Imodium 2 mg 4 times a day as needed. Diet as tolerated. Discharge per medicine. Return office in 2-3 weeks. Assessment and plan a care discussed with Dr. Clark
[2018-10-19] MEDS ORDERED: Potassium Replacement Protocol 1 EACH MISC MISCELLANE PRN ×2 (12:19→17:28)
--- NOTE | 2018-10-19 12:55 | P.PN ---
Subjective Progress Note Date: 10/19/18 This is an 78-year-old gentleman with history of prior non-Q-wave PR in 2013, severe COPD, EtOH abuse, hypertension, hyperlipidemia, prior history of smoking, who presents to the hospital with frequent diarrhea stools. Cardiology consultation was requested because of an abnormal troponin. CAT scan of the brain was performed on arrival here which did not reveal any acute intracranial hemorrhage or midline shift. Moderate diffuse age-related cerebral atrophy and moderate advanced chronic small vessel ischemic change. Chest x-ray did not reveal any acute process. EKG on arrival here showed a normal sinus rhythm with PACs, PVCs and nonspecific ST-T wave changes which could be secondary to electrolyte imbalance. Laboratory data was reviewed, white blood cell count 11.1, hemoglobin 13.8, platelet count 245. Sodium 136, potassium 3.2, BUN 17 and creatinine 1.5. Plasma lactic acid on admission 5.4, 2.2 this morning. Calcium 7.3 magnesium 1.1 total bilirubin 1.4 alkaline phosphatase 139, troponin 0.101, total protein 5.8, albumin 3.1. At the time of my examination this morning, patient states he feels great, he is quite eager to be discharged home. He has had no further episodes of diarrhea this morning according to him. He denies having any chest discomfort and states his breathing is always short from his COPD. the patient does live alone and states that he prepares his own meals. The patient did have an admission to the hospital in 2013 with a suspected non-Q-wave myocardial infarction. His lung doctor, Dr. OBED Hernandez, advised at that time not to proceed with any procedures rv detailer a life-threatening, because of the severe COPD. He had an echo performed at that time which revealed an EF of 30-35%. 10/19/2018 Patient seen and examined this morning, feeling well, echo revealed normal left ventricular systolic function. Potassium remains low at 2.5, this will be replaced. From our perspective patient may be able to be discharged home whenever cleared by primary. Objective - Vital Signs Vital signs: Vital Signs Temp 98 F 10/19/18 08:00 Pulse 96 10/19/18 08:00 Resp 20 10/19/18 08:00 BP 131/76 10/19/18 08:00 Pulse Ox 88 L 10/19/18 08:00 Intake & Output 10/18/18 10/19/18 10/19/18 18:59 06:59 18:59 Intake Total 358 Output Total 900 1 Balance -542 -1 Weight 73.3 kg 73.3 kg Intake: Oral 358 Output: Urine 900 1 Other: Voiding Method Toilet # Voids 1 - Exam PHYSICAL EXAMINATION: GENERAL: 78-year-old gentleman in no acute distress at the time of my examination HEENT: Head is atraumatic, normocephalic. Pupils equal, round. Sclera anicteric. Conjunctiva are clear. Mucous membranes of the mouth are moist. Neck is supple. There is no elevated jugular venous pressure. No carotid bruit is heard. HEART EXAMINATION: Heart S1 and S2 with soft systolic murmur is heard CHEST EXAMINATION: Lungs reveal mild decrease in air exchange. ABDOMEN: Soft, nontender. Bowel sounds are heard. No organomegaly noted. EXTREMITIES:[ 2+ peripheral pulses with no evidence chronic venous stasis and scaling of the skin, trace edema NEUROLOGIC patient is awake, alert and oriented 3 . . - Labs CBC & Chem 7: 10/19/18 09:50 10/19/18 09:50 Labs: Abnormal Lab Results - Last 24 Hours (Table) 10/18/18 10/18/18 10/19/18 Range/Units 15:04 21:06 09:50 RBC 3.36 L (4.30-5.90) m/uL Hgb 12.0 L (13.0-17.5) gm/dL Hct 35.0 L (39.0-53.0) % MCV 104.3 H (80.0-100.0) fL MCH 35.7 H (25.0-35.0) pg Lymphocytes # 0.8 L (1.0-4.8) k/uL Potassium (3.5-5.1) mmol/L Chloride (98-107) mmol/L Carbon Dioxide (22-30) mmol/L Glucose (74-99) mg/dL Calcium (8.4-10.2) mg/dL Troponin I 0.091 H* 0.089 H* (0.000-0.034) ng/mL Total Protein (6.3-8.2) g/dL Albumin (3.5-5.0) g/dL 10/19/18 Range/Units 09:50 RBC (4.30-5.90) m/uL Hgb (13.0-17.5) gm/dL Hct (39.0-53.0) % MCV (80.0-100.0) fL MCH (25.0-35.0) pg Lymphocytes # (1.0-4.8) k/uL Potassium 2.5 L* (3.5-5.1) mmol/L Chloride 94 L (98-107) mmol/L Carbon Dioxide 39 H (22-30) mmol/L Glucose 101 H (74-99) mg/dL Calcium 7.2 L (8.4-10.2) mg/dL Troponin I (0.000-0.034) ng/mL Total Protein 5.3 L (6.3-8.2) g/dL Albumin 2.8 L (3.5-5.0) g/dL Microbiology - Last 24 Hours (Table) 10/17/18 16:32 Urine Culture - Final Urine,Catheterized 10/17/18 17:00 Blood Culture - Preliminary Blood No Growth after 24 hours Assessment and Plan Plan: Assessment and plan #1 several diarrhea stools #2 abnormal troponin, 0.101. Patient denies having any chest discomfort, could be secondary to abnormal renal function #3 hypokalemia #4 hypomagnesemia #5 hypocalcemia #6 EtOH abuse #7 history of non-STEMI in 2013 echo performed at that time showed an EF of 30- 35, patient advised at that time not to undergo any procedures secondary to severe COPD #8 moderate to severe COPD #9 history of smoking Plan Patient's troponins were in a straight line across, no significant rise and fall pattern. Echocardiogram with Doppler study was performed which revealed an ejection fraction of 55-60%. Potassium remains low, and is being replaced. From our perspective patient to be discharged once cleared by primary. DNP note has been reviewed, I agree with a documented findings and plan of care. Patient was seen and examined.
[2018-10-19] MEDS: POTASSIUM CHLORIDE ER 20 MEQ TAB.ER PO SCH ×5 (13:11→21:17)
[2018-10-19] MEDS: ATORVASTATIN 20 MG TAB PO SCH (21:17)
[2018-10-20 06:56] LABS: Anion Gap 4 mmol/L; Blood Urea Nitrogen 6 mg/dL (9-20); Calcium 7.4 mg/dL (8.4-10.2); Carbon Dioxide 38 mmol/L (22-30); Chloride 96 mmol/L (98-107); Glucose 95 mg/dL (74-99); Potassium 2.8 mmol/L (3.5-5.1); Sodium 138 mmol/L (137-145)
[2018-10-20] MEDS: POTASSIUM CHLORIDE ER 20 MEQ TAB.ER PO SCH ×5 (08:02→16:09)
[2018-10-20] MEDS: ASPIRIN 81 MG PO SCH (08:02)
[2018-10-20] MEDS: METOPROLOL SUCCINATE (ER) 100 MG TAB.ER.24H PO SCH (08:03)
[2018-10-20] MEDS: LISINOPRIL 20 MG TAB PO SCH (08:03)
[2018-10-20 08:24] VITALS: RESP 18
[2018-10-20] MEDS: BUDESONIDE 0.5 MG/2 ML NEBU INHALATION SCH (08:34)
[2018-10-20] MEDS ORDERED: Magnesium Replacement Protocol 1 EACH MISC MISCELLANE PRN (10:53)
[2018-10-20] MEDS ORDERED: POTASSIUM CHLORIDE 10 MEQ in WATER FOR INJECTION 1 100ML.BAG IVPB SCH (11:00)
[2018-10-20] MEDS ORDERED: MAGNESIUM SULFATE-D5W PMX 1 GM in DEXTROSE/WATER 1 100ML.BAG IVPB SCH (11:00)
[2018-10-20] MEDS: MAGNESIUM SULFATE-D5W PMX 1 GM in DEXTROSE/WATER 1 100ML.BAG IVPB SCH ×3 (12:14→15:13)
[2018-10-20 15:39] LABS: Potassium 3.6 mmol/L (3.5-5.1)
[2018-10-20 15:58] VITALS: BP 151/85; PULSE 61; TEMP 97.5
--- NOTE | 2018-10-20 16:20 | P.DS ---
Providers Date of admission: 10/17/18 16:56 Expected date of discharge: 10/20/18 Attending physician: Mu Correa Consults: 10/17/18 16:53 Consult Physician Urgent Consulting Provider: [facility] Consult Reason/Comments: Elevated troponin Do you want consulting provider notified?: Yes Primary care physician: Mu Correa Hospital Course: 78-year-old gentleman with history of prior non-Q-wave [place] in 2013, severe COPD, EtOH abuse, hypertension, hyperlipidemia, prior history of smoking, who presents to the hospital with frequent diarrhea stools. Cardiology consultation was requested because of an abnormal troponin. CAT scan of the brain was performed on arrival here which did not reveal any acute intracranial hemorrhage or midline shift. Moderate diffuse age-related cerebral atrophy and moderate advanced chronic small vessel ischemic change. Chest x-ray did not reveal any acute process. EKG on arrival here showed a normal sinus rhythm with PACs, PVCs and nonspecific ST-T wave changes which could be secondary to electrolyte imbalance. Laboratory data was reviewed, white blood cell count 11.1, hemoglobin 13.8, platelet count 245. Sodium 136, potassium 3.2, BUN 17 and creatinine 1.5. Plasma lactic acid on admission 5.4, 2.2 this morning. Calcium 7.3 magnesium 1.1 total bilirubin 1.4 alkaline phosphatase 139, troponin 0.101, total protein 5.8, albumin 3.1. At the time of my examination this morning, patient states he feels great, he is quite eager to be discharged home. He has had no further episodes of diarrhea this morning according to him. He denies having any chest discomfort and states his breathing is always short from his COPD. the patient does live alone and states that he prepares his own meals. The patient did have an admission to the hospital in 2013 with a suspected non-Q-wave myocardial infarction. His lung doctor, Dr. OBED Hernandez, advised at that time not to proceed with any procedures pharmacy scheduler a life-threatening, because of the severe COPD. He had an echo performed at that time which revealed an EF of 30-35%. Patient's echocardiogram revealed normal left ventricular function; patient's electrolytes remained normal which were repleted and monitored closely; patient is discharged home in a stable condition with adjusted medications Plan - Discharge Summary Discharge Rx Participant: No New Discharge Prescriptions: New Aspirin 81 mg PO DAILY chew Potassium Chloride ER [K-Dur 20] 20 meq PO BID #60 tab.er.prt Atorvastatin [Lipitor] 20 mg PO HS #30 tab Continue Budesonide [Pulmicort] 0.5 mg INHALATION RT-BID Metoprolol Succinate [Toprol XL] 100 mg PO DAILY Furosemide [Lasix] 40 mg PO DAILY Lisinopril [Zestril] 20 mg PO DAILY amLODIPine [Norvasc] 5 mg PO DAILY Discharge Medication List Budesonide [Pulmicort] 0.5 mg INHALATION RT-BID 01/04/14 [History] Furosemide [Lasix] 40 mg PO DAILY 01/04/14 [History] Metoprolol Succinate [Toprol XL] 100 mg PO DAILY 01/04/14 [History] Lisinopril [Zestril] 20 mg PO DAILY 09/25/15 [History] amLODIPine [Norvasc] 5 mg PO DAILY 10/17/18 [History] Aspirin 81 mg PO DAILY chew 10/20/18 [Rx] Atorvastatin [Lipitor] 20 mg PO HS #30 tab 10/20/18 [Rx] Potassium Chloride ER [K-Dur 20] 20 meq PO BID #60 tab.er.prt 10/20/18 [Rx] Follow up Appointment(s)/Referral(s): Mu Correa MD [Primary Care Provider] - 10/25/18 11:20 am (Tuesday) Jose Larsen MD [STAFF PHYSICIAN] - 11/09/18 2:30 pm (Hydrotherapist seen in hospital.) Jerry Clark MD [STAFF PHYSICIAN] - 11/17/18 10:45 am (Executive Director) Patient Instructions/Handouts: Dehydration (DC), Urinary Tract Infection in Women (DC), Potassium Content of Foods List (DC), Acute Diarrhea (ED) Activity/Diet/Wound Care/Special Instructions: Imodium 2mg- 4 times daily as needed. This is over the counter, recommended by GI consult. Please follow up with Dr. Clark within 3-4 weeks. Discharge Disposition: HOME SELF-CARE
--- NOTE | 2018-10-23 12:28 | CDI ---
Sepsis Documentation Clarification Form Date: 10/23/18 From: Alberta Milligan Phone: If you have a question regarding this query, please contact Abbey Gonzalez at [phone] between 8am and 5pm. Admit Date: 10/17/2018 4:56:00 PM Patient Name: Jaylon Ledbetter Visit Number: [id number] Discharge Date: 10/20/2018 5:30:00 PM ATTENTION: The Clinical Documentation Specialists (CDI) and [facility] Coding Staff appreciate your assistance in clarifying documentation. Please respond to the clarification below the line at the bottom and electronically sign. The CDI & [facility] Coding staff will review the response and follow-up if needed. Please note: Queries are made part of the Legal Health Record. If you have any questions, please contact the author of this message via ITS. Dr. Lebron Pope The patient presented with lactic acidosis, elevated troponin, UTI, Diarrhea, hypokalemia and hypomagnesemia. Per documentation in the ED note, H&P and Hortensia Damian's 10/19 progress note, the patient had sepsis. History/Risk Factors: Patient had a UTI on admission and has also been having diarrhea. The patient has a history of pneumonia, cardiomyopathy and hypertension. Clinical Indicators: Lactic acidosis and elevated WBCs WBC: 11.1 Lactic acid: 5.4 Blood cultures: No growth. Vitals signs on admission: T. 98.3, P. 59, R. 18, BP 119/71 Antibiotics: IV Rocephin IV Bolus: 2.5 liters of sodium chloride In your professional opinion, please clarify if these findings signify one of the following conditions: Condition Sepsis ruled out SIRS, without underlying infectious process Sepsis Severe Sepsis Septic Shock Other, please specify Unable to determine MTDD
== END 2018-10-20 17:30 | disposition home or self-care (01) | DRG 872 ==
LOC: EC 14:33 → 3SCARD 16:56
PROVIDERS: ADMIT Family Medicine; ATTEND Family Medicine
DX: A41.9 Sepsis, unspecified organism (principal); I50.22 Chronic systolic (congestive) heart failure; N39.0 Urinary tract infection, site not specified; E11.9 Type 2 diabetes mellitus without complications; I11.0 Hypertensive heart disease with heart failure; J44.9 Chronic obstructive pulmonary disease, unspecified; N28.9 Disorder of kidney and ureter, unspecified; E83.42 Hypomagnesemia; E83.51 Hypocalcemia; I25.5 Ischemic cardiomyopathy; E78.5 Hyperlipidemia, unspecified; E87.6 Hypokalemia; H54.7 Unspecified visual loss; H91.90 Unspecified hearing loss, unspecified ear; I25.2 Old myocardial infarction; I49.3 Ventricular premature depolarization; R19.7 Diarrhea, unspecified; R77.9 Abnormality of plasma protein, unspecified; I49.1 Atrial premature depolarization; Z79.899 Other long term (current) drug therapy; Z88.6 Allergy status to analgesic agent; Z87.891 Personal history of nicotine dependence; Z90.49 Acquired absence of other specified parts of digestive tract; Z87.01 Personal history of pneumonia (recurrent); Z80.9 Family history of malignant neoplasm, unspecified
CPT/HCPCS: 36415; 70450; 71046; 80048; 80053; 80320; 81001; 83605; 83735; 84132; 84484; 85025; 85610; 85730; 87040; 87045; 87046; 87086; 87324; 93005; 93306; 94640; 96361; 96365; 96368; 96375; 99291

== ENCOUNTER 2018-11-30 15:30 | Inpatient (IN) | payer MEDICARE ==
[2018-11-30] MEDS ORDERED: SODIUM CHLORIDE 0.9% 500 ML 500 ML IV STA ×2 (15:59→17:23)
--- NOTE | 2018-11-30 16:03 | ED ---
General Adult HPI - General Chief complaint: Weakness Stated complaint: WEAKNESS Time Seen by Provider: 11/30/18 15:37 Source: patient, EMS, RN notes reviewed Mode of arrival: EMS Limitations: altered mental status - History of Present Illness Initial comments: 78-year-old male with complicated past medical history presents to the emergency department for chief complaint of weakness times several weeks. Family member states that patient was discharged from the hospital approximately 6 weeks ago and has been weak ever since. She states that over the past few days this has worsened. She states patient has not been eating for several days and is no longer able to ambulate due to the weakness. Patient was recently admitted 6 weeks ago for elevated troponin and electrolyte imbalance which was corrected at that admission. Daughter states that they have been trying to have patient drink ensure that he has not been doing so. They state they did talk about jail placement one week ago at patient's primary care and it was recommended that he try to another week of ensure to see if he would improve before taking a step. Patient has no other complaints at this time including shortness of breath, chest pain, abdominal pain, nausea or vomiting, headache, or visual changes. - Related Data Home Medications Medication Instructions Recorded Confirmed Budesonide [Pulmicort] 0.5 mg INHALATION RT-BID 01/04/14 11/30/18 Furosemide [Lasix] 40 mg PO DAILY 01/04/14 11/30/18 Metoprolol Succinate [Toprol XL] 100 mg PO DAILY 01/04/14 11/30/18 Lisinopril [Zestril] 20 mg PO DAILY 09/25/15 11/30/18 amLODIPine [Norvasc] 5 mg PO DAILY 10/17/18 11/30/18 Previous Rx's Medication Instructions Recorded Atorvastatin [Lipitor] 20 mg PO HS #30 tab 10/20/18 Potassium Chloride ER [K-Dur 20] 20 meq PO BID #60 tab.er.prt 10/20/18 Allergies Allergy/AdvReac Type Severity Reaction Status Date / Time acetaminophen [From Tylenol] AdvReac CONFUSED, Verified 11/30/18 15:45 HYPER Review of Systems ROS Statement: Those systems with pertinent positive or pertinent negative responses have been documented in the HPI. ROS Other: All systems not noted in ROS Statement are negative. Past Medical History Past Medical History: Asthma, Chest Pain / Angina, COPD, Diabetes Mellitus, Eye Disorder, Hearing Disorder / Deafness, Hyperlipidemia, Hypertension, Myocardial Infarction (non Q-wave), Pneumonia, Skin Disorder, Syncope Additional Past Medical History / Comment(s): ISCHEMIC CMP. HAS ABD HERNIA, WEARS BINDER. CURRENT LESION LT MANDAEISM AREA. LT LOWER LEG REDNESS. 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 Last Myocardial Infarction Date:: 01/10/14 History of Any Multi-Drug Resistant Organisms: None Reported Past Surgical History: Appendectomy, Back Surgery, Bowel Resection, Hernia Repair, Orthopedic Surgery Additional Past Surgical History / Comment(s): BACK SURG D/T INFECTION CHILD. RT SHOULDER. Past Anesthesia/Blood Transfusion Reactions: No Reported Reaction Past Psychological History: No Psychological Hx Reported Smoking Status: Former smoker Past Alcohol Use History: Daily Past Drug Use History: None Reported - Past Family History Brother(s) Family Medical History: Cancer General Exam Limitations: altered mental status General appearance: alert, in no apparent distress Head exam: Present: atraumatic, normocephalic, normal inspection Eye exam: Present: normal appearance, PERRL, EOMI. Absent: scleral icterus, conjunctival injection, periorbital swelling ENT exam: Present: normal oropharynx, normal external ear exam. Absent: mucous membranes moist Neck exam: Present: normal inspection, full ROM. Absent: tenderness, menin gismus, lymphadenopathy Respiratory exam: Present: normal lung sounds bilaterally. Absent: respiratory distress, wheezes, rales, rhonchi, stridor Cardiovascular Exam: Present: regular rate, normal rhythm, normal heart sounds. Absent: systolic murmur, diastolic murmur, rubs, gallop, clicks Neurological exam: Present: alert, oriented X3 (orietned to person, place, time), CN II-XII intact Psychiatric exam: Present: normal affect, normal mood, other (pleasant) Skin exam: Present: warm, dry, intact, normal color. Absent: rash Course Vital Signs 11/30/18 15:38 Temperature 97.9 F Pulse Rate 63 Respiratory 17 Rate Blood Pressure 127/69 O2 Sat by Pulse 100 Oximetry Medical Decision Making - Medical Decision Making 78-year-old male with a complicated past medical history presents to the emergency department for a chief complaint of weakness. Patient has not eaten in several days and is no longer able to walk due to his weakness. Patient states this has been since he has been discharged from the hospital 6 weeks ago but has worsened in the past few days. Although I did not learn this until family was present patient is an alcoholic and has been drinking rum. Vitals are stable, patient does appear dehydrated mucous membranes dry. CBC unremarkable. Patient has a hemoglobin of 12.3. CMP does show a creatinine of 2.45 with a BUN of 46, patient given a liter of fluids and put on 150 miles per hour. Troponin is negative. Magnesium 1.6. Patient will be admitted for acute kidney injury. - Lab Data Result diagrams: 11/30/18 15:44 11/30/18 15:44 Lab Results 11/30/18 11/30/18 11/30/18 Range/Units 15:44 15:44 15:44 WBC 8.5 (3.8-10.6) k/uL RBC 3.46 L (4.30-5.90) m/uL Hgb 12.3 L (13.0-17.5) gm/dL Hct 37.1 L (39.0-53.0) % MCV 107.3 H (80.0-100.0) fL MCH 35.5 H (25.0-35.0) pg MCHC 33.1 (31.0-37.0) g/dL RDW 14.8 (11.5-15.5) % Plt Count 261 (150-450) k/uL Neutrophils % 83 % Lymphocytes % 9 % Monocytes % 6 % Eosinophils % 1 % Basophils % 0 % Neutrophils # 7.1 (1.3-7.7) k/uL Lymphocytes # 0.7 L (1.0-4.8) k/uL Monocytes # 0.5 (0-1.0) k/uL Eosinophils # 0.1 (0-0.7) k/uL Basophils # 0.0 (0-0.2) k/uL Macrocytosis Moderate PT 9.6 (9.0-12.0) sec INR 0.9 (<1.2) APTT 22.2 (22.0-30.0) sec Sodium (137-145) mmol/L Potassium (3.5-5.1) mmol/L Chloride (98-107) mmol/L Carbon Dioxide (22-30) mmol/L Anion Gap mmol/L BUN (9-20) mg/dL Creatinine (0.66-1.25) mg/dL Est GFR (CKD-EPI)AfAm (>60 ml/min/1.73 sqM) Est GFR (CKD-EPI)NonAf (>60 ml/min/1.73 sqM) Glucose (74-99) mg/dL Calcium (8.4-10.2) mg/dL Magnesium (1.6-2.3) mg/dL Total Bilirubin (0.2-1.3) mg/dL AST (17-59) U/L ALT (21-72) U/L Alkaline Phosphatase (38-126) U/L Troponin I <0.012 (0.000-0.034) ng/mL Total Protein (6.3-8.2) g/dL Albumin (3.5-5.0) g/dL 11/30/18 Range/Units 15:44 WBC (3.8-10.6) k/uL RBC (4.30-5.90) m/uL Hgb (13.0-17.5) gm/dL Hct (39.0-53.0) % MCV (80.0-100.0) fL MCH (25.0-35.0) pg MCHC (31.0-37.0) g/dL RDW (11.5-15.5) % Plt Count (150-450) k/uL Neutrophils % % Lymphocytes % % Monocytes % % Eosinophils % % Basophils % % Neutrophils # (1.3-7.7) k/uL Lymphocytes # (1.0-4.8) k/uL Monocytes # (0-1.0) k/uL Eosinophils # (0-0.7) k/uL Basophils # (0-0.2) k/uL Macrocytosis PT (9.0-12.0) sec INR (<1.2) APTT (22.0-30.0) sec Sodium 135 L (137-145) mmol/L Potassium 5.0 (3.5-5.1) mmol/L Chloride 104 (98-107) mmol/L Carbon Dioxide 20 L (22-30) mmol/L Anion Gap 11 mmol/L BUN 46 H (9-20) mg/dL Creatinine 2.45 H (0.66-1.25) mg/dL Est GFR (CKD-EPI)AfAm 28 (>60 ml/min/1.73 sqM) Est GFR (CKD-EPI)NonAf 24 (>60 ml/min/1.73 sqM) Glucose 128 H (74-99) mg/dL Calcium 8.8 (8.4-10.2) mg/dL Magnesium 1.6 (1.6-2.3) mg/dL Total Bilirubin 0.6 (0.2-1.3) mg/dL AST 28 (17-59) U/L ALT 24 (21-72) U/L Alkaline Phosphatase 102 (38-126) U/L Troponin I (0.000-0.034) ng/mL Total Protein 5.7 L (6.3-8.2) g/dL Albumin 3.2 L (3.5-5.0) g/dL Disposition Clinical Impression: Acute renal failure, Weakness Disposition: ADMITTED IP TO THIS HOSP Condition: Fair Is patient prescribed a controlled substance at d/c from ED?: No Referrals: Mu Correa MD [Primary Care Provider] - 1-2 days Time of Disposition: 17:42
[2018-11-30 16:30] LABS: Basophils % (A) 0 %; Eosinophils # (A) 0.1 k/uL (0-0.7); Eosinophils % (A) 1 %; HCT 37.1 % (39.0-53.0); HGB 12.3 gm/dL (13.0-17.5); Lymphocytes # (A) 0.7 k/uL (1.0-4.8); Lymphocytes % (A) 9 %; MCH 35.5 pg (25.0-35.0); MCHC 33.1 g/dL (31.0-37.0); MCV 107.3 fL (80.0-100.0); Macrocytosis Moderate; Mean Platelet Volume 7.8; Monocytes # (A) 0.5 k/uL (0-1.0); Monocytes % (A) 6 %; Neutrophils # (A) 7.1 k/uL (1.3-7.7); Neutrophils % (A) 83 %; Platelet Count 261 k/uL (150-450); RBC 3.46 m/uL (4.30-5.90); RDW 14.8 % (11.5-15.5); WBC 8.5 k/uL (3.8-10.6)
--- NOTE | 2018-11-30 16:30 | XR ---
EXAMINATION TYPE: XR chest 2V DATE OF EXAM: 11/30/2018 COMPARISON: 10/17/2018 HISTORY: Shortness of breath TECHNIQUE: Frontal and lateral views of the chest are obtained. FINDINGS: Scattered senescent parenchymal changes noted. Hyperinflation compatible with COPD. No evidence for infiltrate. No evidence for atelectasis. Heart size is stable. Mediastinal structures are stable and grossly unremarkable. No evidence for hilar prominence. Degenerative changes dorsal spine. IMPRESSION: 1. No evidence for acute pulmonary disease.
[2018-11-30 16:38] LABS: Albumin 3.2 g/dL (3.5-5.0); Calcium 8.8 mg/dL (8.4-10.2); Magnesium 1.6 mg/dL (1.6-2.3); Total Bilirubin 0.6 mg/dL (0.2-1.3); Total Protein 5.7 g/dL (6.3-8.2)
[2018-11-30 16:46] LABS: INR 0.9 (<1.2); Partial Thromboplastin Time 22.2 sec (22.0-30.0); Prothrombin Time 9.6 sec (9.0-12.0)
[2018-11-30] MEDS ORDERED: NALOXONE 0.4 MG/ML 1 ML VIAL IV PRN (17:41)
[2018-11-30] MEDS: SODIUM CHLORIDE 0.9% 1,000 ML IV SCH (18:09)
[2018-12-01] MEDS: SODIUM CHLORIDE 0.9% 1,000 ML IV SCH ×3 (01:36→16:50)
[2018-12-01 02:28] LABS: Appearance,Urine Cloudy (Clear); Bacteria,Urine Rare /hpf; Bilirubin,Urine Negative (Negative); Blood,Urine Negative (Negative); Color,Urine Yellow; Glucose,Urine (UA) Negative (Negative); Hyaline Casts,Urine 82 /lpf (0-2); Ketones,Urine Negative (Negative); Leukocyte Esterase,Urine Large (Negative); Mucus,Urine Rare /hpf; Nitrite,Urine Negative (Negative); PH, Urine 5.5 (5.0-8.0); Protein,Urine Trace (Negative); RBC,Urine 1 /hpf (0-5); Specific Gravity,Urine 1.015 (1.001-1.035); Squamous Epithelial Cell,Urine 5 /hpf (0-4); Urobilinogen,Urine <2.0 mg/dL (<2.0); WBC,Urine 40 /hpf (0-5)
[2018-12-01 14:49] LABS: Calcium 8.2 mg/dL (8.4-10.2); Potassium 4.1 mmol/L (3.5-5.1)
[2018-12-01 15:40] VITALS: BMI 20.7
[2018-12-01] MEDS ORDERED: METOPROLOL SUCCINATE (ER) 100 MG TAB.ER.24H PO STA (18:40)
[2018-12-01] MEDS: traMADol 50 MG TAB PO PRN (18:50)
[2018-12-01] MEDS: BUDESONIDE 0.5 MG/2 ML NEBU INHALATION SCH (19:15)
[2018-12-01] MEDS: ATORVASTATIN 20 MG TAB PO SCH (20:16)
[2018-12-02] MEDS: SODIUM CHLORIDE 0.9% 1,000 ML IV SCH ×5 (05:52→22:07)
[2018-12-02] MEDS: BUDESONIDE 0.5 MG/2 ML NEBU INHALATION SCH ×2 (07:31→19:12)
[2018-12-02] MEDS: traMADol 50 MG TAB PO PRN (07:54)
[2018-12-02] MEDS: amLODIPine 5 MG TAB PO SCH (07:57)
[2018-12-02] MEDS: METOPROLOL SUCCINATE (ER) 100 MG TAB.ER.24H PO SCH (07:58)
[2018-12-02 08:10] LABS: Potassium 3.9 mmol/L (3.5-5.1)
[2018-12-02 08:45] LABS: Basophils % (A) 0 %; Eosinophils # (A) 0.1 k/uL (0-0.7); Eosinophils % (A) 2 %; HCT 29.6 % (39.0-53.0); Lymphocytes # (A) 0.9 k/uL (1.0-4.8); Lymphocytes % (A) 15 %; MCH 35.6 pg (25.0-35.0); MCHC 33.2 g/dL (31.0-37.0); MCV 107.2 fL (80.0-100.0); Macrocytosis Moderate; Mean Platelet Volume 7.2; Monocytes # (A) 0.4 k/uL (0-1.0); Monocytes % (A) 7 %; Neutrophils # (A) 4.5 k/uL (1.3-7.7); Neutrophils % (A) 74 %; Platelet Count 181 k/uL (150-450); RBC 2.76 m/uL (4.30-5.90); RDW 14.5 % (11.5-15.5)
[2018-12-02 08:48] LABS: HGB 9.8 gm/dL (13.0-17.5)
--- NOTE | 2018-12-02 11:18 | P.HPIM ---
History of Present Illness H&P Date: 12/01/18 Chief Complaint: Altered mental status 78-year-old male with complicated past medical history presents to the emergency department for chief complaint of weakness times several weeks. Family member states that patient was discharged from the hospital approximately 6 weeks ago and has been weak ever since. She states that over the past few days this has worsened. She states patient has not been eating for several days and is no longer able to ambulate due to the weakness. Patient was recently admitted 6 weeks ago for elevated troponin and electrolyte imbalance which was corrected at that admission. Daughter states that they have been trying to have patient drink ensure that he has not been doing so. They state they did talk about assisted placement one week ago at patient's primary care and it was recommended that he try to another week of ensure to see if he would improve before taking a step. Patient has no other complaints at this time including shortness of breath, chest pain, abdominal pain, nausea or vomiting, headache, or visual changes. Review of Systems Constitutional: Denies chills, Denies fever Eyes: denies as per HPI, denies loss of vision Cardiovascular: Denies chest pain, Denies palpitations Respiratory: Denies cough with sputum, Denies wheezing Gastrointestinal: Denies abdominal pain, Denies nausea, Denies vomiting Genitourinary: Denies dysuria, Denies hematuria Musculoskeletal: Reports gait dysfunction, Reports muscle weakness, Denies frequent falls Neurological: Reports confusion, Reports gait dysfunction Endocrine: Denies cold intolerance, Denies heat intolerance Past Medical History Past Medical History: Asthma, Chest Pain / Angina, COPD, Eye Disorder, Hearing Disorder / Deafness, Hyperlipidemia, Hypertension, Myocardial Infarction (non Q- wave), Pneumonia, Skin Disorder, Syncope Additional Past Medical History / Comment(s): ISCHEMIC CMP. 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 Last Myocardial Infarction Date:: 01/10/14 History of Any Multi-Drug Resistant Organisms: None Reported Past Surgical History: Appendectomy, Back Surgery, Bowel Resection, Hernia Repair, Orthopedic Surgery Additional Past Surgical History / Comment(s): BACK SURG D/T INFECTION CHILD. RT SHOULDER. Past Anesthesia/Blood Transfusion Reactions: No Reported Reaction Past Psychological History: No Psychological Hx Reported Smoking Status: Former smoker Past Alcohol Use History: Daily Additional Past Alcohol Use History / Comment(s): SMOKED 49 YEARS, 1 PPD PLUS, QUIT 1988 Past Drug Use History: None Reported Additional Drug Use History / Comment(s): NONE NOW - Past Family History Brother(s) Family Medical History: Cancer Medications and Allergies Home Medications Medication Instructions Recorded Confirmed Type Budesonide [Pulmicort] 0.5 mg INHALATION RT-BID 01/04/14 11/30/18 History Furosemide [Lasix] 40 mg PO DAILY 01/04/14 11/30/18 History Metoprolol Succinate [Toprol XL] 100 mg PO DAILY 01/04/14 11/30/18 History Lisinopril [Zestril] 20 mg PO DAILY 09/25/15 11/30/18 History amLODIPine [Norvasc] 5 mg PO DAILY 10/17/18 11/30/18 History Atorvastatin [Lipitor] 20 mg PO HS #30 tab 10/20/18 11/30/18 Rx Potassium Chloride ER [K-Dur 20] 20 meq PO BID #60 tab.er.prt 10/20/18 11/30/18 Rx Allergies Allergy/AdvReac Type Severity Reaction Status Date / Time acetaminophen [From Tylenol] AdvReac CONFUSED, Verified 11/30/18 15:45 HYPER Physical Exam Vitals: Vital Signs Temp Pulse Pulse Resp BP BP Pulse Ox 12/01/18 12:46 97.7 F 71 20 162/74 95 12/01/18 04:52 97.5 F L 67 20 158/74 99 11/30/18 20:45 97.6 F 64 20 111/58 99 11/30/18 18:19 60 18 109/60 99 11/30/18 15:38 97.9 F 63 17 127/69 100 Intake and Output 11/30/18 12/01/18 12/01/18 22:59 06:59 14:59 Intake Total 1200 Output Total 275 Balance 1200 -275 Intake: Amount of Fluid Infused ( 200 ml) Intake, IV Titration 450 Amount Sodium Chloride 0.9% 1, 450 000 ml @ 150 mls/hr IV . Q6H40M [facility] Rx#:[id number] Oral 550 Output: Urine 275 Other: Voiding Method Urinal Bedside Commode Urinal # Voids 0 Weight 69.354 kg Limitations: altered mental status General appearance: alert, in no apparent distress Head exam: Present: atraumatic, normocephalic, normal inspection Eye exam: Present: normal appearance, PERRL, EOMI. Absent: scleral icterus, conjunctival injection, periorbital swelling ENT exam: Present: normal oropharynx, normal external ear exam. Absent: mucous membranes moist Neck exam: Present: normal inspection, full ROM. Absent: tenderness, meningismus, lymphadenopathy Respiratory exam: Present: normal lung sounds bilaterally. Absent: respiratory distress, wheezes, rales, rhonchi, stridor Cardiovascular Exam: Present: regular rate, normal rhythm, normal heart sounds. Absent: systolic murmur, diastolic murmur, rubs, gallop, clicks Neurological exam: Present: alert, oriented X3 (orietned to person, place, time), CN II-XII intact Psychiatric exam: Present: normal affect, normal mood, other (pleasant) Skin exam: Present: warm, dry, intact, normal color. Absent: rash Results CBC & Chem 7: 12/02/18 07:17 12/02/18 07:17 Labs: Abnormal Lab Results - Last 24 Hours (Table) 11/30/18 11/30/18 11/30/18 Range/Units 15:44 15:44 23:35 RBC 3.46 L (4.30-5.90) m/uL Hgb 12.3 L (13.0-17.5) gm/dL Hct 37.1 L (39.0-53.0) % MCV 107.3 H (80.0-100.0) fL MCH 35.5 H (25.0-35.0) pg Lymphocytes # 0.7 L (1.0-4.8) k/uL Sodium 135 L (137-145) mmol/L Carbon Dioxide 20 L (22-30) mmol/L BUN 46 H (9-20) mg/dL Creatinine 2.45 H (0.66-1.25) mg/dL Glucose 128 H (74-99) mg/dL Total Protein 5.7 L (6.3-8.2) g/dL Albumin 3.2 L (3.5-5.0) g/dL Urine Protein Trace H (Negative) Ur Leukocyte Esterase Large H (Negative) Urine WBC 40 H (0-5) /hpf Urine WBC Clumps Rare H (None) /hpf Ur Squamous Epith Cells 5 H (0-4) /hpf Urine Bacteria Rare H (None) /hpf Hyaline Casts 82 H (0-2) /lpf Urine Mucus Rare H (None) /hpf Thrombosis Risk Factor Assmnt - Choose All That Apply Any of the Below Risk Factors Present?: Yes Each Factor Represents 1 point: Abnormal pulmonary function (COPD), Acute NC, Varicose veins Other Risk Factors: Yes Each Risk Factor Represents 3 Points: Age 75 years or older Thrombosis Risk Factor Assessment Total Risk Factor Score: 6 Thrombosis Risk Factor Assessment Level: High Risk Assessment and Plan Assessment: 1. Acute renal injury - Patient started on IV fluids in form of normal saline at rate of 150 mL an hour - We will continue with current IV fluids and monitor strict AFIA's, daily weights, renal function and electrolytes - Avoid nephrotoxins and hypotension 2. Altered mental status; metabolic encephalopathy possibly secondary to dehydration; fluid resuscitation as indicated above 3. UTI; we will start patient on IV Rocephin 1 g daily - Await final urine culture results and adjust antibiotic treatment accordingly 4. Hypertension; stable on Norvasc 5 mg daily and metoprolol 100 mg daily 5. Hyperlipidemia; Lipitor 20 mg by mouth daily at bedtime 6. COPD; not in exacerbation; continue with Pulmicort inhaler twice a day 7. DVT prophylaxis; SCDs CODE STATUS; full code Time with Patient: Greater than 30
--- NOTE | 2018-12-02 18:43 | P.PN ---
Subjective Progress Note Date: 12/02/18 Principal diagnosis: Acute renal injury UTI 78-year-old male with complicated past medical history presents to the emergency department for chief complaint of weakness times several weeks. Family member states that patient was discharged from the hospital approximately 6 weeks ago and has been weak ever since. She states that over the past few days this has worsened. She states patient has not been eating for several days and is no longer able to ambulate due to the weakness. Patient was recently admitted 6 weeks ago for elevated troponin and electrolyte imbalance which was corrected at that admission. 12/02/2018; Patient is seen and evaluated in the room at bedside; patient denies any specific complaints at this time Vital signs are reviewed showing a temperature of 98.2, pulse, respirations 17 and blood pressure 142/67; SpO2 of 98% on room air Lab review shows significant drop in hemoglobin from 12.3 on admission to 9.8 this morning; this could be dilutional since patient has been on IV fluids for acute renal injury; we will plan to monitor H&H and stool occult blood; we will consult GI if patient continues to drop hemoglobin or with any signs of bleeding; patient is started on IV Rocephin for possible UTI; blood cultures have been negative so far and urine culture remains pending PT/OT have been consulted for evaluation and recommendations on discharge planning Objective - Vital Signs Vital signs: Vital Signs Temp 98.2 F 12/02/18 11:51 Pulse 52 L 12/02/18 11:51 Resp 17 12/02/18 11:51 BP 142/67 12/02/18 11:51 Pulse Ox 98 12/02/18 11:51 Intake & Output 12/01/18 12/02/18 12/02/18 18:59 06:59 18:59 Intake Total 350 Balance 350 Weight 69.354 kg Intake: Intake, IV Titration 350 Amount Sodium Chloride 0.9% 1, 350 000 ml @ 150 mls/hr IV . Q6H40M [facility] Rx#:[id number] Other: Voiding Method Bedside Commode Bedside Commode Bedside Commode Urinal Urinal Urinal # Voids 2 1 - Exam Limitations: altered mental status General appearance: alert, in no apparent distress Head exam: Present: atraumatic, normocephalic, normal inspection Eye exam: Present: normal appearance, PERRL, EOMI. Absent: scleral icterus, conjunctival injection, periorbital swelling ENT exam: Present: normal oropharynx, normal external ear exam. Absent: mucous membranes moist Neck exam: Present: normal inspection, full ROM. Absent: tenderness, meningismus, lymphadenopathy Respiratory exam: Present: normal lung sounds bilaterally. Absent: respiratory distress, wheezes, rales, rhonchi, stridor Cardiovascular Exam: Present: regular rate, normal rhythm, normal heart sounds. Absent: systolic murmur, diastolic murmur, rubs, gallop, clicks Neurological exam: Present: alert, oriented X3 (orietned to person, place, time), CN II-XII intact Psychiatric exam: Present: normal affect, normal mood, other (pleasant) Skin exam: Present: warm, dry, intact, normal color. Absent: rash - Labs CBC & Chem 7: 12/02/18 07:17 12/02/18 07:17 Labs: Abnormal Lab Results - Last 24 Hours (Table) 12/01/18 12/02/18 12/02/18 Range/Units 14:02 07:17 07:17 RBC 2.76 L (4.30-5.90) m/uL Hgb 9.8 L D (13.0-17.5) gm/dL Hct 29.6 L (39.0-53.0) % MCV 107.2 H (80.0-100.0) fL MCH 35.6 H (25.0-35.0) pg Lymphocytes # 0.9 L (1.0-4.8) k/uL Chloride 112 H 116 H (98-107) mmol/L Carbon Dioxide 21 L 20 L (22-30) mmol/L BUN 32 H 22 H (9-20) mg/dL Creatinine 1.39 H (0.66-1.25) mg/dL Calcium 8.2 L 8.0 L (8.4-10.2) mg/dL Microbiology - Last 24 Hours (Table) 11/30/18 17:16 Blood Culture - Preliminary Blood No Growth after 24 hours Assessment and Plan Assessment: 1. Acute renal injury - Patient started on IV fluids in form of normal saline at rate of 150 mL an hour - We will continue with current IV fluids and monitor strict AFIA's, daily weights, renal function and electrolytes - Avoid nephrotoxins and hypotension 2. Altered mental status; metabolic encephalopathy possibly secondary to dehydration; fluid resuscitation as indicated above 3. UTI; we will start patient on IV Rocephin 1 g daily - Await final urine culture results and adjust antibiotic treatment accordingly 4. Hypertension; stable on Norvasc 5 mg daily and metoprolol 100 mg daily 5. Hyperlipidemia; Lipitor 20 mg by mouth daily at bedtime 6. COPD; not in exacerbation; continue with Pulmicort inhaler twice a day 7. DVT prophylaxis; SCDs CODE STATUS; full code Time with Patient: Greater than 30
[2018-12-02] MEDS: ATORVASTATIN 20 MG TAB PO SCH (19:27)
[2018-12-03] MEDS: SODIUM CHLORIDE 0.9% 1,000 ML IV SCH ×3 (04:36→20:49)
[2018-12-03] MEDS: amLODIPine 5 MG TAB PO SCH (08:22)
[2018-12-03] MEDS: METOPROLOL SUCCINATE (ER) 100 MG TAB.ER.24H PO SCH (08:22)
[2018-12-03 08:47] LABS: Basophils % (A) 0 %; Eosinophils # (A) 0.1 k/uL (0-0.7); Eosinophils % (A) 1 %; HCT 33.2 % (39.0-53.0); Lymphocytes # (A) 0.8 k/uL (1.0-4.8); Lymphocytes % (A) 10 %; MCH 35.4 pg (25.0-35.0); MCHC 33.2 g/dL (31.0-37.0); MCV 106.6 fL (80.0-100.0); Macrocytosis Moderate; Monocytes # (A) 0.5 k/uL (0-1.0); Monocytes % (A) 6 %; Neutrophils # (A) 6.5 k/uL (1.3-7.7); Neutrophils % (A) 81 %; Platelet Count 166 k/uL (150-450); RBC 3.11 m/uL (4.30-5.90); RDW 14.6 % (11.5-15.5); WBC 8.1 k/uL (3.8-10.6)
[2018-12-03 09:00] LABS: Anion Gap 3 mmol/L; Blood Urea Nitrogen 16 mg/dL (9-20); Calcium 8.6 mg/dL (8.4-10.2); Carbon Dioxide 21 mmol/L (22-30); Chloride 116 mmol/L (98-107); Glucose 87 mg/dL (74-99); Potassium 4.6 mmol/L (3.5-5.1); Sodium 140 mmol/L (137-145)
[2018-12-03] MEDS: BUDESONIDE 0.5 MG/2 ML NEBU INHALATION SCH ×2 (09:06→19:34)
--- NOTE | 2018-12-03 14:30 | P.PN ---
Subjective Progress Note Date: 12/03/18 Principal diagnosis: Acute renal injury UTI 78-year-old male with complicated past medical history presents to the emergency department for chief complaint of weakness times several weeks. Family member states that patient was discharged from the hospital approximately 6 weeks ago and has been weak ever since. She states that over the past few days this has worsened. She states patient has not been eating for several days and is no longer able to ambulate due to the weakness. Patient was recently admitted 6 weeks ago for elevated troponin and electrolyte imbalance which was corrected at that admission. 12/02/2018; Patient is seen and evaluated in the room at bedside; patient denies any specific complaints at this time Vital signs are reviewed showing a temperature of 98.2, pulse, respirations 17 and blood pressure 142/67; SpO2 of 98% on room air Lab review shows significant drop in hemoglobin from 12.3 on admission to 9.8 this morning; this could be dilutional since patient has been on IV fluids for acute renal injury; we will plan to monitor H&H and stool occult blood; we will consult GI if patient continues to drop hemoglobin or with any signs of bleeding; patient is started on IV Rocephin for possible UTI; blood cultures have been negative so far and urine culture remains pending PT/OT have been consulted for evaluation and recommendations on discharge planning 12/03/2018 Patient is seen and evaluated in the room; denies any specific complaints According to family patient is unable to take care of himself at home; patient lives home alone with minimal assistance from a friend; case management/[employer] on case and information for assisted living and [facility] home's and the area has been provided to the family; PT has seen patient and is recommending [facility]; family is agreeable; patient will need 3 night inpatient stay to qualify for skilled rehab Objective - Vital Signs Vital signs: Vital Signs Temp 97.5 F L 12/03/18 04:50 Pulse 69 12/03/18 04:50 Resp 18 12/03/18 04:50 BP 179/86 12/03/18 04:50 Pulse Ox 97 12/03/18 04:50 Intake & Output 12/02/18 12/03/18 12/03/18 18:59 06:59 18:59 Intake Total 1450 Balance 1450 Intake: Intake, IV Titration 850 Amount Sodium Chloride 0.9% 1, 800 000 ml @ 150 mls/hr IV . Q6H40M [facility] Rx#:[id number] [id number] 1 gm In 50 Sodium Chloride 0.9% 50 ml @ 100 mls/hr IVPB Q24H [facility] Rx#:[id number] Oral 600 Other: Voiding Method Bedside Commode Bedside Commode Bedside Commode Urinal Urinal Urinal # Voids 2 1 - Exam Limitations: altered mental status General appearance: alert, in no apparent distress Head exam: Present: atraumatic, normocephalic, normal inspection Eye exam: Present: normal appearance, PERRL, EOMI. Absent: scleral icterus, conjunctival injection, periorbital swelling ENT exam: Present: normal oropharynx, normal external ear exam. Absent: mucous membranes moist Neck exam: Present: normal inspection, full ROM. Absent: tenderness, meningismus, lymphadenopathy Respiratory exam: Present: normal lung sounds bilaterally. Absent: respiratory distress, wheezes, rales, rhonchi, stridor Cardiovascular Exam: Present: regular rate, normal rhythm, normal heart sounds. Absent: systolic murmur, diastolic murmur, rubs, gallop, clicks Neurological exam: Present: alert, oriented X3 (orietned to person, place, time), CN II-XII intact Psychiatric exam: Present: normal affect, normal mood, other (pleasant) Skin exam: Present: warm, dry, intact, normal color. Absent: rash - Labs CBC & Chem 7: 12/03/18 07:43 12/03/18 07:43 Labs: Abnormal Lab Results - Last 24 Hours (Table) 12/03/18 12/03/18 Range/Units 07:43 07:43 RBC 3.11 L (4.30-5.90) m/uL Hgb 11.0 L (13.0-17.5) gm/dL Hct 33.2 L (39.0-53.0) % MCV 106.6 H (80.0-100.0) fL MCH 35.4 H (25.0-35.0) pg Lymphocytes # 0.8 L (1.0-4.8) k/uL Chloride 116 H (98-107) mmol/L Carbon Dioxide 21 L (22-30) mmol/L Microbiology - Last 24 Hours (Table) 11/30/18 17:16 Blood Culture - Preliminary Blood No Growth after 48 hours Assessment and Plan Assessment: 1. Acute renal injury - Patient started on IV fluids in form of normal saline at rate of 150 mL an hour - We will continue with current IV fluids and monitor strict AFIA's, daily weights, renal function and electrolytes - Avoid nephrotoxins and hypotension 2. Altered mental status; metabolic encephalopathy possibly secondary to dehydration; fluid resuscitation as indicated above 3. UTI; we will start patient on IV Rocephin 1 g daily - Await final urine culture results and adjust antibiotic treatment accordingly 4. Hypertension; stable on Norvasc 5 mg daily and metoprolol 100 mg daily 5. Hyperlipidemia; Lipitor 20 mg by mouth daily at bedtime 6. COPD; not in exacerbation; continue with Pulmicort inhaler twice a day 7. DVT prophylaxis; SCDs CODE STATUS; full code Time with Patient: Greater than 30
[2018-12-03] MEDS: ATORVASTATIN 20 MG TAB PO SCH (20:46)
[2018-12-03] MEDS: traMADol 50 MG TAB PO PRN (20:47)
[2018-12-04] MEDS: traMADol 50 MG TAB PO PRN ×2 (02:32→08:37)
[2018-12-04] MEDS: SODIUM CHLORIDE 0.9% 1,000 ML IV SCH ×2 (06:09→10:22)
[2018-12-04] MEDS: BUDESONIDE 0.5 MG/2 ML NEBU INHALATION SCH (07:44)
[2018-12-04 08:28] LABS: Basophils % (A) 0 %; Eosinophils % (A) 0 %; HCT 32.4 % (39.0-53.0); HGB 10.5 gm/dL (13.0-17.5); Lymphocytes # (A) 0.5 k/uL (1.0-4.8); Lymphocytes % (A) 6 %; MCH 35.3 pg (25.0-35.0); MCHC 32.5 g/dL (31.0-37.0); MCV 108.6 fL (80.0-100.0); Macrocytosis Marked; Mean Platelet Volume 7.1; Monocytes # (A) 0.5 k/uL (0-1.0); Monocytes % (A) 6 %; Neutrophils # (A) 7.5 k/uL (1.3-7.7); Neutrophils % (A) 87 %; Platelet Count 202 k/uL (150-450); RBC 2.98 m/uL (4.30-5.90); RDW 13.9 % (11.5-15.5); WBC 8.7 k/uL (3.8-10.6)
[2018-12-04] MEDS: amLODIPine 5 MG TAB PO SCH (08:35)
[2018-12-04] MEDS: METOPROLOL SUCCINATE (ER) 100 MG TAB.ER.24H PO SCH (08:35)
[2018-12-04 08:36] LABS: Anion Gap 3 mmol/L; Blood Urea Nitrogen 13 mg/dL (9-20); Calcium 8.3 mg/dL (8.4-10.2); Carbon Dioxide 24 mmol/L (22-30); Chloride 113 mmol/L (98-107); Glucose 120 mg/dL (74-99); Sodium 140 mmol/L (137-145)
--- NOTE | 2018-12-04 11:02 | P.DS ---
Providers Date of admission: 11/30/18 17:31 Expected date of discharge: 12/04/18 Attending physician: Mu Correa Primary care physician: Mu Correa Hospital Course: 78-year-old male was admitted through the emergency room with complaints of increasing weakness. Patient was on telemetry concerned. Patient has altered mental status changes. Family states patient has not been eating or taking ensure is a was supposed to. The plan is for admission to extended care facility for rehab. Assessment Acute renal injury secondary to limited fluid intake resolving Altered mental status metabolic encephalopathy secondary to dehydration Urinary tract infection ruled out no growth and culture Hypertension Hyperlipidemia COPD stable not in exacerbation Ventral hernia Generalized weakness Plan Transfer to extended care facility for rehab Patient Condition at Discharge: Fair Plan - Discharge Summary Discharge Rx Participant: No New Discharge Prescriptions: New traMADol HCl [Ultram] 50 mg PO BID PRN 7 Days #14 tab PRN Reason: Pain Continue Budesonide [Pulmicort] 0.5 mg INHALATION RT-BID Metoprolol Succinate [Toprol XL] 100 mg PO DAILY Lisinopril [Zestril] 20 mg PO DAILY amLODIPine [Norvasc] 5 mg PO DAILY Atorvastatin [Lipitor] 20 mg PO HS #30 tab Discontinued Furosemide [Lasix] 40 mg PO DAILY Potassium Chloride ER [K-Dur 20] 20 meq PO BID #60 tab.er.prt Discharge Medication List Budesonide [Pulmicort] 0.5 mg INHALATION RT-BID 01/04/14 [History] Metoprolol Succinate [Toprol XL] 100 mg PO DAILY 01/04/14 [History] Lisinopril [Zestril] 20 mg PO DAILY 09/25/15 [History] amLODIPine [Norvasc] 5 mg PO DAILY 10/17/18 [History] Atorvastatin [Lipitor] 20 mg PO HS #30 tab 10/20/18 [Rx] traMADol HCl [Ultram] 50 mg PO BID PRN 7 Days #14 tab 12/04/18 [Rx] Follow up Appointment(s)/Referral(s): Mu Correa MD [Primary Care Provider] - 1-2 days
[2018-12-04 11:43] VITALS: BP 122/70; PULSE 70; RESP 16; TEMP 97.5
== END 2018-12-04 15:45 | DRG 682 ==
LOC: EC 15:30 → 3NMEDONC 17:31
PROVIDERS: ADMIT Family Medicine; ATTEND Family Medicine
DX: N17.9 Acute kidney failure, unspecified (principal); G93.41 Metabolic encephalopathy; N39.0 Urinary tract infection, site not specified; R71.0 Precipitous drop in hematocrit; E86.0 Dehydration; I25.5 Ischemic cardiomyopathy; E11.9 Type 2 diabetes mellitus without complications; J44.9 Chronic obstructive pulmonary disease, unspecified; E78.5 Hyperlipidemia, unspecified; I10 Essential (primary) hypertension; K43.9 Ventral hernia without obstruction or gangrene; I25.2 Old myocardial infarction; R26.2 Difficulty in walking, not elsewhere classified; H54.7 Unspecified visual loss; H91.90 Unspecified hearing loss, unspecified ear; Z79.51 Long term (current) use of inhaled steroids; Z79.899 Other long term (current) drug therapy; Z87.891 Personal history of nicotine dependence; Z87.01 Personal history of pneumonia (recurrent); Z90.49 Acquired absence of other specified parts of digestive tract; Z88.6 Allergy status to analgesic agent; Z80.9 Family history of malignant neoplasm, unspecified
CPT/HCPCS: 36415; 71046; 80048; 80053; 81001; 83735; 84484; 85025; 85610; 85730; 87040; 93005; 94640; 94760; 96360; 99285